=== PATIENT | male | born 1990 | race Caucasian/White ===

== ENCOUNTER 2017-01-03 14:15 | Inpatient (IN) | payer BC, OTHER ==
[~2017-01-03] VITALS: Ht 175.3 cm; Wt 94.3 kg
[2017-01-03] MEDS ORDERED: LOPERAMIDE HCL 2 MG CAPSULE PO PRN ×2 (22:45)
[2017-01-03] MEDS ORDERED: diphenhydrAMINE 50 MG CAPSULE PO PRN (22:45)
[2017-01-03] MEDS ORDERED: BUPRENORPHINE HCL 2 MG TAB.SUBL SL PRN (22:45)
[2017-01-03] MEDS ORDERED: LORAZEPAM 2 MG/1 ML VIAL IM PRN (22:45)
[2017-01-03] MEDS ORDERED: MIRALAX 17 GM POWD.PACK PO PRN (22:45)
[2017-01-03] MEDS ORDERED: IBUPROFEN 400 MG TABLET PO PRN (22:45)
[2017-01-03] MEDS ORDERED: LORAZEPAM 1 MG TABLET PO PRN ×2 (22:45)
[2017-01-03] MEDS ORDERED: MAGNESIUM HYDROXIDE 30 ML LIQUID UDC PO PRN (22:45)
[2017-01-03] MEDS ORDERED: THIAMINE HCL 200 MG/2 ML VIAL IM ONE (22:45)
[2017-01-03] MEDS ORDERED: MAG HYDROX/AL HYDROX/SIMETH 30 ML LIQUID UDC PO PRN (22:45)
[2017-01-03 23:00] VITALS: BP 127/72
--- NOTE | 2017-01-03 23:00 | NUR ---
ADMISSION NOTE: NEW ADMISSION IS A 26 YO MALE ON THE [facility] AT 22:30 ON 01/03/17 ACCOMPANIED BY MALE VALVE LINER RUBBER. SKIN CHECK COMPLETED REVEALS SKIN TO BE CLEAN, DRY, INTACT. UDS COLLECTED AND RESULTED POSITIVE FOR CANNABINOIDS WHICH IS NOT CONSISTENT WITH SUBSTANCE USE HISTORY PROVIDED BY PT. VS UPON ADMISSION: 127/72, 84, 98.4, 18, 96% SPO2 ON RA. COWS IS 12, CIWA IS 13: PT REPORTS ANXIETY, SENSITIVITY TO LIGHT, RESTLESSNESS, HEADACHE, NAUSEA. HEIGHT IS 59 AND WEIGHT BY STANDING SCALE IS 208 LBS. PT REPORTS NKDA/NKFA. PT ADMITTED UNDER THE CARE OF DR RAMÍREZ FOR ETOH DEPENDENCE AND WITHDRAWAL. PT REPORTS THE FOLLOWING SUBSTANCE USE: ETOH (VODKA): PT REPORTS DRINKING 1-2 PINTS VODKA DAILY FOR 6 MONTHS. PT REPORTS STARTING TO DRINK ETOH 11 YEARS AGO. LAST DRINK WAS ON THE MORNING PRIOR TO ADMISSION, 1 PINT VODKA. SEROQUEL: PT REPORTS TAKING PO OR SMOKING 500-700MG DAILY FOR 2 MONTHS. PT REPORTS STARTING TO TAKE SEROQUEL 6 MONTHS AGO. LAST USE WAS 400MG 4 HOURS PRIOR TO ADMISSION. HYDROCODONE: PT REPORTS TAKING 20-50MG DAILY FOR 6 YEARS. PT REPORTS LAST USING 50MG ON 01/01/17. PT REPORTS SMOKING 10-20 CIGARETTES DAILY FOR 4 YEARS. WRITTEN SMOKING CESSATION EDUCATION PROVIDED. PT VERBALIZES UNDERSTANDING. PT DENIES TREATMENT/DETOX HX. PT DENIES ANY HOSPITALIZATIONS, SURGERIES, PMHX. PT REPORTS PCP IS DR PASCAL IN [place], [place]. PT REPORTS DX OF ANXIETY, INSOMNIA, MAJOR DEPRESSION. PT DENIES SEIZURE HX. PT IS AMBULATORY WITH STEADY GAIT. PT IS COOPERATIVE, FRIENDLY, ABLE TO ANSWER QUESTIONS FOR ADMISSION. PT IS NOTED TO BE UNABLE TO SIT STILL WITH CONSTANT FIDGETING. PERRLA AT 3MM. LUNGS ARE CTA THROUGHOUT, RESPIRATIONS ARE EVEN AND UNLABORED AT 18. PT DENIES COUGH/SOB. HEART SOUNDS REGULAR. PT DENIES ANY EXTREMITY WEAKNESS. BOWEL SOUNDS ACTIVE IN ALL QUADRANTS; LAST BM ON 01/02/17. ABDOMEN IS SOFT, NON-DISTENDED, NON-TENDER. PT REPORTS SUICIDE ATTEMPT 3 WEEKS PRIOR TO ADMISSION. PT REPORTS GOING TO BRIDGE AND DRINKING VODKA, WITH THOUGHTS OF JUMPING OFF BRIDGE. PT REPORTS THAT SOMEONE STOPPED TO TALK TO HIM AND ENCOURAGED HIM TO LEAVE BRIDGE. PT STATES, "THE GROUND ACTUALLY LOOKED SOFT". PT VERBALIZED FEELINGS OF HOPELESSNESS MULTIPLE TIMES DURING ADMISSION ASSESSMENT. PT ALSO REPORTS EXPERIENCING SUICIDAL THOUGHTS A TYPICAL SYMPTOM OF WITHDRAWAL FROM ETOH AND SEROQUEL. DR RAMÍREZ ORDERED PT TO BE PLACED ON 1:1 FOR SAFETY.
--- NOTE | 2017-01-03 23:01 | NUR ---
PRN BENADRYL AND ATIVAN 2MG ONCE: PT REPORTS SEVERE INSOMNIA. ADMINISTERED PRN BENADRYL WITH ATIVAN 2MG PO ONCE PER MD ORDER.
[2017-01-03] MEDS ORDERED: LORAZEPAM 1 MG TABLET ONE (23:02)
[2017-01-03] MEDS ORDERED: diphenhydrAMINE 50 MG CAPSULE ONE (23:03)
[2017-01-03] MEDS ORDERED: QUET100T PO (23:04)
[2017-01-03 23:05] LABS: HEMATOCRIT 47.8 % (40.0-50.0); HEMOGLOBIN 16.2 g/dL (14.0-18.0); MEAN CORPUSCULAR HEMOGLOBIN 30.1 uug (27.0-31.0); MEAN CORPUSCULAR HGB CONC 34 g/dL (32.0-37.0); MEAN CORPUSCULAR VOLUME 88.9 fL (82.0-92.0); PLATELET COUNT (AUTO) 224 K/uL (150-450); RED BLOOD CELL COUNT(AUTO) 5.38 MIL/uL (4.70-6.10); RED CELL DISTRIBUTION WIDTH 12.9 % (11.5-14.5); WHITE BLOOD COUNT (AUTO) 11.3 K/uL (4.0-11.2)
[2017-01-03 23:26] LABS: ALANINE AMINOTRANSFERASE 67 U/L (16-63); ALBUMIN 4.2 g/dL (3.4-5.0); ALKALINE PHOSPHATASE 79 U/L (50-136); AMYLASE 29 U/L (25-115); ASPARTATE AMINOTRANSFERASE 34 U/L (15-37); BILIRUBIN,TOTAL 0.5 mg/dL (0.2-1.0); CARBON DIOXIDE 25 mmol/L (21-32); CHLORIDE 103 mmol/L (98-107); CREATININE 1.1 mg/dL (0.6-1.3); GFR 82 mL/min (>60); GLUCOSE 133 mg/dL (74-106); LIPASE 94 U/L (73-393); MAGNESIUM 2.1 mg/dL (1.8-2.4); POTASSIUM 3.4 mmol/L (3.5-5.1); SODIUM SERUM 139 mmol/L (136-145); TOTAL PROTEIN, SERUM 7.9 g/dL (6.4-8.2); UREA NITROGEN, BLOOD 17 mg/dL (7-18)
[2017-01-03 23:29] LABS: ETHANOL < 3 MG/DL (0-0)
[2017-01-03] MEDS ORDERED: LORAZEPAM 1 MG TABLET PO ONE (23:30)
[2017-01-03 23:37] LABS: THYROID STIMULATING HORMONE 3.545 mIU/mL (0.358-3.740)
[2017-01-03 23:44] LABS: *AMPHETAMINE, URINE NEGATIVE (NEGATIVE); *BARBITURATE, URINE NEGATIVE (NEGATIVE); *CANNABINOID, URINE POSITIVE (NEGATIVE); *COCCAINE, URINE NEGATIVE (NEGATIVE); *OPIATE, URINE NEGATIVE (NEGATIVE); *PHENCYCLIDINE SCREEN,URINE NEGATIVE (NEGATIVE)
[2017-01-04] VITALS: BP 131/81
[2017-01-04 00:05] LABS: HIV-1 p24 ANTIGEN NON REACTIVE (NONREACTIVE); HIV-1/2 ANTIBODY NON REACTIVE (NONREACTIVE)
--- NOTE | 2017-01-04 01:15 | NUR ---
REASSESSMENT AND PRN ATIVAN: PT REPORTS THAT HE IS STILL ANXIOUS, AGITATED, NAUSEOUS, SENSITIVE TO LIGHT AND SOUND, HEADACHE. PRN BENADRYL NOT EFFECTIVE. CIWA IS 18. ADMINISTERED PRN ATIVAN 2MG ORDERED ACCORDING TO CIWA SCORE.
[2017-01-04 01:47] LABS: BAND % (MANUAL) 1 % (0-10); EOSINOPHILS % (MANUAL) 1 % (0-8); LYMPHOCYTES % (MANUAL) 30 % (20-40); MONOCYTES % (MANUAL) 3 % (2-10); NEUTROPHILS % (MANUAL) 65 % (42-75)
[2017-01-04 01:50] LABS: PLATELET ESTIMATE ADEQUATE
[2017-01-04] MEDS ORDERED: METHOCARBAMOL 750 MG TABLET ONE (02:49)
[2017-01-04] MEDS ORDERED: HYDROXYZINE PAMOATE 25 MG CAPSULE ONE (02:49)
[2017-01-04] MEDS: METHOCARBAMOL 750 MG TABLET PO PRN (02:50)
[2017-01-04] MEDS ORDERED: PROMETHAZINE HCL 25 MG/1 ML VIAL ONE (02:50)
[2017-01-04] MEDS: CLONIDINE HCL 0.1 MG TABLET PO PRN ×2 (02:50→12:20)
[2017-01-04] MEDS: HYDROXYZINE PAMOATE 25 MG CAPSULE PO PRN (02:50)
[2017-01-04] MEDS ORDERED: CLONIDINE HCL 0.1 MG TABLET ONE (02:50)
--- NOTE | 2017-01-04 02:50 | NUR ---
REASSESSMENT AND PRN'S PT REPORTS THAT HE IS STILL ANXIOUS, AGITATED, WITH NAUSEA, RESTLESS LEGS, MYALGIA. CIWA IS NOW 17 AND COWS IS 12. ADMINISTERED PRN CLONIDINE, PRN PHENERGAN IM, PRN VISTARIL, AND PRN ROBAXIN ORDERED. WILL CONTINUE TO MONITOR.
[2017-01-04] MEDS: PROMETHAZINE HCL 25 MG/1 ML VIAL IM PRN ×2 (02:51→10:30)
--- NOTE | 2017-01-04 03:50 | NUR ---
REASSESSMENT: PT IS IN BED WITH EYES CLOSED. RESPIRATIONS ARE EVEN AND UNLABORED. NO S/S OF ACUTE DISTRESS NOTED. PRN'S CLONIDINE, PHENERGAN, VISTARIL, AND ROBAXIN EFFECTIVE. PT CONTINUES ON 1:1 FOR SAFETY. WILL CONTINUE TO MONITOR.
--- NOTE | 2017-01-04 04:00 | NUR ---
VITALS/COWS/CIWA REFUSED: PT REFUSES VITALS AND COWS/CIWA ASSESSMENTS FOR SLEEP. PT EDUCATED ON RISKS BENEFITS. ALL SAFETY PRECAUTIONS ARE IN PLACE. WILL CONTINUE TO MONITOR. Addendum: 01/04/17 at 0531 by MATTHEW HSU RN Amended: Links added.
[2017-01-04] MEDS ORDERED: QUET200T PO (06:20)
--- NOTE | 2017-01-04 07:04 | NUR ---
END OF SHIFT NOTE: PT IS A 26 YO MALE ADMITTED TO [facility] ON 01/03/17 FOR MEDICALLY SUPERVISED WITHDRAWAL FROM ETOH. PT REPORTS DRINKING 473-1419 ML VODKA DAILY FOR 6 MONTHS; PT ALSO REPORTS SMOKING 500-700MG SEROQUEL DAILY. PT WAS TAKING 20-50MG HYDROCODONE DAILY, BUT LAST USED ONE WEEK PRIOR TO ADMISSION. PT IS TO START A 5-DAY ATIVAN TAPER TODAY. PT SKIN IS INTACT. PT IS ON A REGULAR DIET. PT IS A FULL CODE. PT REPORTS NKDA/NKFA. VTE SCORE IS 0. PT IS ON 1:1 FOR SUICIDE ATTEMPT THREE WEEKS PRIOR, POSSIBLE CURRENT SI. PT REPORTS A PSYCH HX OF ANXIETY, MAJOR DEPRESSION, AND INSOMNIA. PT DENIES MEDICAL HX. PT REMAINED A&OX4 DURING SHIFT WITH VSS. LAST COWS=12, CIWA=17 AT 02:30. PT WAS EXTREMELY ANXIOUS AND UNABLE TO SIT STILL DURING ADMISSION AND FOR MOST OF THE NIGHT. PT RECEIVED 2MG ATIVAN ONCE AND PRN BENADRYL UPON ADMISSION, WHICH WAS NOT EFFECTIVE, AND AN ADDITIONAL 2MG ATIVAN PRN WAS ADMINISTERED. PT WAS STILL ANXIOUS WITH COWS OF 12, CIWA OF 18, AND PRN CLONIDINE AND PRN VISTARIL WERE GIVEN FOR ANXIETY. PRN PHENERGAN WAS ALSO GIVEN FOR NAUSEA, AND PRN ROBAXIN FOR MYALGIA. PT WAS FINALLY ABLE TO SLEEP AT 04:00 AND SLEPT 2 HOURS THIS SHIFT. TOTAL FLUID INTAKE THIS SHIFT: 1243 ML; TOTAL OUTPUT: URINE X 3, BM X 1 IS CURRENTLY IN BED AND CONTINUES ON 1:1 FOR SAFETY. BED IS IN LOW POSITION AND LOCKED, SIDE RAILS UP X2, CALL LIGHT WITHIN REACH. ALL NEEDS ATTENDED AND MET. PT ENDORSED TO DAY SHIFT NURSE.
--- NOTE | 2017-01-04 07:05 | NUR ---
Start of Shift Notes: Received patient in his room. Alert and oriented x 4. Verbally responsive. Able to make his needs known. Respirations even and unlabored. No SOB noted. Skin warm and dry to touch. Abdomen soft and non-distended. BS (+) in all 4 quadrants. No complains of N/V/D or constipation noted. Bladder non-distended. Voids independently with no complains of dysuria. Ambulatory ad destin with steady gait. Patient is a 26 year old male admitted for ETOH and Seroquel dependence who was placed on a 5-day Ativan taper as ordered and on PRN Subutex. NKA. FULL CODE. Regular diet. On fall and seizure precautions. Educated patient on his current plan of care for the day and his medication regimen. Encouraged oral fluid intake and encouraged group participation to learn new skills to prevent relapse.
--- NOTE | 2017-01-04 07:06 | NUR ---
Additional start of shift notes: Patient is on a 1:1 at this time due to episode of suicidal attempt/ideation 3 weeks ago prior to admission. No S/I or H/I noted at this time.
[2017-01-04 08:00] VITALS: BP 131/71
[2017-01-04] MEDS ORDERED: PNEUMOCOCCAL 23-VAL P-SAC VAC 0.5 ML VIAL IM ONE (09:00)
[2017-01-04] MEDS ORDERED: TUBERCULIN,PURIF.PROT.DERIV. 5 TU/0.1 ML TEST ID ONE (09:00)
[2017-01-04] MEDS ORDERED: INFLUENZA VACCINE 0.5 ML DISP.SYRIN IM ONE (09:00)
[2017-01-04] MEDS: GABAPENTIN 300 MG CAPSULE PO SCH ×3 (09:24→20:57)
[2017-01-04] MEDS: THIAMINE HCL 100 MG TABLET PO SCH (09:24)
[2017-01-04] MEDS: MULTIVITAMINS,THERAPEUTIC TABLET PO SCH (09:24)
[2017-01-04] MEDS: FOLIC ACID 1 MG TABLET PO SCH (09:25)
[2017-01-04] MEDS: LORAZEPAM 1 MG TABLET PO SCH ×4 (09:25→20:57)
--- NOTE | 2017-01-04 10:30 | NUR ---
Phenergan 25 mg IM given: Patient noted with x 3 episodes of vomitting food particles. Unable to tolerate PO fluids at this time. Offered PRN Zofran but patient requested for Phenergan IM. Medicated patient with Phenergan 25 mg IM as ordered to patient's right buttock. Will monitor for effectiveness.
[2017-01-04] MEDS ORDERED: LORAZEPAM 1 MG TABLET PO ONE (11:00)
--- NOTE | 2017-01-04 11:21 | NUR ---
Re-assessment: Patient noted with continued episodes of vomiting noted. X 3 episodes of vomiting after Phenergan administration. CIWA 21. MD Mike aware. New orders received for patient to be started on IVF and additional x 1 dose of Ativan. Orders noted and carried out. Patient was informed. Education provided.
--- NOTE | 2017-01-04 11:30 | NUR ---
Psych MD Communication: Patient noted with visual hallucinations, seeing "frightening" things on the correa and the vents. Patient stated that he sees the correa float and "see-through." Dr. Blake made aware. VS BP 130/85, Pulse 100. New orders obtained from Dr. Blake. Orders noted and carried out. Patient was informed. Education provided.
--- NOTE | 2017-01-04 11:45 | NUR ---
IV line inserted: IV access line inserted to patient's left forearm. Utilized 22 gauge to patient's left forearm. Attempted x 1 with good blood return via aseptic technique. Tourniquet released and patient tolerated the procedure well. Kept comfortable at all times. 1:1 still ongoing at this time.
[2017-01-04] MEDS: OLANZAPINE ZYDIS 5 MG TAB.RAPDIS PO PRN (11:54)
--- NOTE | 2017-01-04 11:54 | NUR ---
PRN Zyprexa given: PRN Zyprexa Zydis given due to episodes of visual hallucinations, disorientation to date. CIWA 21. Will monitor for effectiveness.
[2017-01-04 12:00] VITALS: BP 137/87
[2017-01-04] MEDS: PANTOPRAZOLE SODIUM 40 MG VIAL IV SCH (12:07)
[2017-01-04] MEDS: POTASSIUM CHLORIDE 20 MEQ in IV D5 1/2 NS 1000 ML 1,000 ML IV PRN ×2 (12:07→22:15)
[2017-01-04] MEDS ORDERED: TRAZODONE 50 MG TABLET PO PRN (12:15)
--- NOTE | 2017-01-04 12:20 | NUR ---
Clonidine 0.1mg PO given: Patient noted with anxiety and agitation. Also noted to be diaphoretic. Medicated patient with Clonidine 0.1 mg PO as ordered. Will monitor for effectiveness.
--- NOTE | 2017-01-04 12:21 | NUR ---
MD Communication: Patient's CIWA 19. Notified Dr. Mike. Routine Ativan 2 mg PO given at this time.
--- NOTE | 2017-01-04 12:54 | NUR ---
Re-assessment: LOVE Valdez re-assessment done. Patient continues to see things on the wall and on the vents. According to 1:1 BHT assigned to the patient, while patient was downstairs on his smoke break, patient verbalized that he was "seeing the tent cave in and the legs on the table were moving." Redirection and reorientation was provided. Will continue to monitor the patient.
--- NOTE | 2017-01-04 13:20 | NUR ---
Re-assessment: Per patient, PRN Clonidine was mildly effective in reducing anxiety, agitation and sweating.
--- NOTE | 2017-01-04 15:46 | NUR ---
Gabapentin at 1500 not administered: Patient noted to be in bed. Eyes closed. Chest movement noted. Respirations even and unlabored. RR 16. On 1:1. Bilateral siderails up and padded. Gabapentin at [address] Mike made aware. Per , ok to hold Gabapentin at 1500.
[2017-01-04 16:00] VITALS: BP 126/83
--- NOTE | 2017-01-04 18:40 | NUR ---
Mag Citrate given: Patient requested for mag citrate to be given at this time due to no relief noted from Miralax. Mag Citrate was given as ordered. Will monitor for effectiveness. Addendum: 01/04/17 at 1939 by KG PERRY LVN Charted in error
--- NOTE | 2017-01-04 19:38 | NUR ---
End of Shift Notes: Patient is a 26 year old male admitted for ETOH dependence who was placed on a 5-day Ativan taper as ordered. No adverse reactions noted. Has past medical hx of depression, insomnia and anxiety, and suicide attempts x 2 3 weeks prior to admission. On 1:1 at this time due to SA attempts within the past 30 days and visual hallucinations. Prior to admission, patient was using 473 to 1419ml of Vodka. And 500 to 700 mg of Seroquel. FULL CODE. Regular diet. On fall and seizure precautions. NKA. VS monitored closely q 4 hours. No significant abnormalities noted in the patients VS noted. Initial CIWA at 21 presented with nausea, vomiting, visual hallucinations, anxiety, agitation, and sweating. Last CIWA _. Per patient, Ativan has been helping him with his withdrawal symptoms. Patient was medicated with Phenergan at 1030 for vomiting with no help, Ativan at 1121 due to high CIWA and Zyprexa at 1154 due to hallucinations with help. Clonidine 0.1mg PO was given at 1220 due to anxiety, agitation and chills with help after 1 hour. Patient was started on IVF of D5 NS + 20 meQ of K at 120cc/hr. IV site of 22 g to left forearm intact and patent. No s/s of infiltration noted. Flushed adequately per unit protocol. Flu and PNA vaccine was given today. No s/s of respiratory distress noted. No cough. No congestion. No SOB noted. No runny nose. No S/I or H/I noted. Siderails up and padded when in bed. Safety measures in place. Unable to participate In group due to his withdrawal symptoms but appears to be motivated to sobriety. All needs met and attended. Will continue to monitor closely.
--- NOTE | 2017-01-04 19:50 | NUR ---
START OF SHIFT Received report from day shift nurse. Pt is lying in bed resting with 1:[address] for safety. He is easily arousable to verbal stimulation, A&O 4, and ambulatory with assistance due to weakness. He uses a wheelchair as needed. Pt has NKA, is full code status, and on a regular diet. He has a 22 gauge IV on the left forearm and is receiving IV fluids. He denies visual or auditory hallucinations. He has a PMH of major depression, anxiety, insomnia, and suicide attempts x2. Last suicide attempt was 3 weeks ago. On admission he reported drinking vodka 473-1419mL for the past 6 months, Seroquel oral inhalation 500-700mg for 2 months, hydrocodone 20-50mg intermittently for 6 years. He has a h/o tramodol and cocaine abuse. He started a 5 day Ativan taper today. Pt denies SI/HI. He reports mild nausea, and is noted with mild tremors and moist skin. Ativan taper due tonight. Fall and seizure precautions in place. Bed is down with call light in reach.
[2017-01-04 20:00] VITALS: BP 98/61
[2017-01-05] VITALS (7 sets, daily range): BP systolic 100–147; BP diastolic 52–95
[2017-01-05] MEDS: HYDROXYZINE PAMOATE 25 MG CAPSULE PO PRN (04:53)
--- NOTE | 2017-01-05 04:56 | NUR ---
PRN Vistaril Pt woke up and reports anxiety. He appears restless and is shaking a pack of cigarettes in his hand. He is A&O. Encouraged relaxation. PRN Vistaril administered.
[2017-01-05 06:59] LABS: HEMATOCRIT 46.7 % (40.0-50.0); HEMOGLOBIN 15.7 g/dL (14.0-18.0); MEAN CORPUSCULAR HEMOGLOBIN 29.9 uug (27.0-31.0); MEAN CORPUSCULAR HGB CONC 34 g/dL (32.0-37.0); MEAN CORPUSCULAR VOLUME 88.8 fL (82.0-92.0); PLATELET COUNT (AUTO) 180 K/uL (150-450); RED BLOOD CELL COUNT(AUTO) 5.26 MIL/uL (4.70-6.10); RED CELL DISTRIBUTION WIDTH 12.6 % (11.5-14.5); WHITE BLOOD COUNT (AUTO) 9.9 K/uL (4.0-11.2)
--- NOTE | 2017-01-05 07:10 | NUR ---
END OF SHIFT Report provided to day shift nurse. Pt is lying in bed resting with 1:[address] for safety. He is a 26 yo male admitted to [facility] on 01/03 for ETOH dependence. He is A&O 4 and ambulatory with assistance. He uses a wheelchair as needed due to weakness. Pt has NKA, is full code status, and on a regular diet. He has a 22 gauge IV on the left forearm and is receiving IV fluids. Pt has a PMH of major depression, anxiety, insomnia, and suicide attempts x2. Last suicide attempt was 3 weeks ago. Upon admission he admitted to drinking vodka 473-1419mL for the past 6 months, Seroquel oral inhalation 500-700mg for 2 months, hydrocodone 20-50mg intermittently for 6 years. He has a h/o tramadol and cocaine abuse. He started a 5 day Ativan taper yesterday. Pt denies SI/HI. He did not experience any visual or auditory hallucinations throughout the shift. He has been cooperative with treatment. PRN Vistaril administered. Last CIWA was 6. He drank 1710mL and slept for 7 hours. Fall and seizure precautions in place. Bed is down with call light in reach.
--- NOTE | 2017-01-05 07:11 | NUR ---
Start of Shift Notes: Received patient in his room. Alert and oriented to self and situation. Disoriented to time and place. Reorientation provided. Respirations even and unlabored. No SOB noted. Skin warm and dry to touch. IV access to left forearm intact. No s/s of infiltration noted. IVF of D5 1/2NS with 20 mEq at 120cc/hr infusing well. Abdomen soft and non-distended with (+) BS in all 4 quadrants. Noted with x 1 episode of vomiting and nausea. Ambulatory with unsteady gait. Requires use of w/c for locomotion off unit. Able to ambulate with slow small steps from room to the bathroom. Voids independently. On 1:1 at this time due to visual hallucinations and unsteady gait, as well as history of SA in the past. Patient is a 26 year old male admitted for ETOH dependence who was placed on a 5-day Ativan taper as ordered. No adverse reactions noted. Patient is tolerating taper well. Has past medical hx of major depression, anxiety, insomnia, and suicide attempts 3 weeks prior to admission. NKA. FULL CODE. Regular diet. On fall and seizure precautions. Patient noted with active visual hallucinations at time of this assessment. Per patient, he sees patterns on the wall and floating face on the vents of the room. Reorientation provided. No S/I or H/I noted at this time. Educated patient on his current plan of care for the day and his medication regimen. Encouraged group participation to learn new skills to prevent relapse. All needs met and attended. Will continue to monitor closely.
[2017-01-05 07:22] LABS: ALBUMIN 3.7 g/dL (3.4-5.0); BILIRUBIN,DIRECT 0.1 mg/dL (0.0-0.2); BILIRUBIN,TOTAL 0.6 mg/dL (0.2-1.0); CALCIUM 8.8 mg/dL (8.5-10.1); MAGNESIUM 1.8 mg/dL (1.8-2.4); POTASSIUM 4.4 mmol/L (3.5-5.1); TOTAL PROTEIN, SERUM 7.1 g/dL (6.4-8.2)
[2017-01-05] MEDS: POTASSIUM CHLORIDE 20 MEQ in IV D5 1/2 NS 1000 ML 1,000 ML IV PRN (07:44)
--- NOTE | 2017-01-05 07:44 | NUR ---
IV bag replaced: Patient's IV bag replaced at this time by RN. Flushed adequately per unit protocol. No s.s of infiltration noted. Patient tolerated well.
[2017-01-05] MEDS: PROMETHAZINE HCL 25 MG/1 ML VIAL IM PRN (08:30)
--- NOTE | 2017-01-05 08:30 | NUR ---
Phenergan 25 mg IM given: Patient unable to tolerate PO fluids and food. Vomitted x 1. Nausea noted. Medicated patient with Phenergan 25 mg IM to patient's left buttocks. Patient tolerated well. Will monitor for effectiveness.
[2017-01-05] MEDS: THIAMINE HCL 100 MG TABLET PO SCH (08:32)
[2017-01-05] MEDS: GABAPENTIN 300 MG CAPSULE PO SCH ×3 (08:32→20:46)
[2017-01-05] MEDS: LORAZEPAM 1 MG TABLET PO SCH ×3 (08:32→20:46)
[2017-01-05] MEDS: MULTIVITAMINS,THERAPEUTIC TABLET PO SCH (08:32)
[2017-01-05] MEDS: FOLIC ACID 1 MG TABLET PO SCH (08:32)
[2017-01-05] MEDS: ESCITALOPRAM OXALATE 10 MG TABLET PO SCH (08:32)
[2017-01-05] MEDS: OLANZAPINE ZYDIS 5 MG TAB.RAPDIS PO PRN (08:33)
--- NOTE | 2017-01-05 08:33 | NUR ---
Zyprexa Zydis 5 mg PO given: Patient noted with visual hallucinations. Verbalized seeing a person on the vents and seeing patterns on the correa. CIWA 20. Reorientation provided. Medicated patient with Zyprexa Zydis 5 mg PO as ordered. Will monitor for effectiveness.
[2017-01-05] MEDS: PANTOPRAZOLE SODIUM 40 MG VIAL IV SCH (08:49)
[2017-01-05 09:07] LABS: HCV AB 0.1 s/co ratio (0.0-0.9); HEPATITIS B CORE AB, IgM Negative (Negative); HEPATITIS B SURFACE AG Negative (Negative)
--- NOTE | 2017-01-05 09:30 | NUR ---
Re-assessment: Patient noted with no complains of nausea noted. No further episodes of vomiting noted. PRN Phenergan was effective.
--- NOTE | 2017-01-05 09:33 | NUR ---
Re-assessment: Patient verbalizes mild visual hallucinations at this time. Will continue to monitor.
--- NOTE | 2017-01-05 10:24 | NUR ---
Procalcitonin level: Notified MD Mike of patient's Procalcitonin level of 0.23H
[2017-01-05 11:25] LABS: BASOPHILS % (AUTO) 0.2 % (0.0-2.0); EOSINOPHILS % (AUTO) 1.1 % (0.0-7.0); LYMPHOCYTES % (AUTO) 9.7 % (20.5-51.5); MONOCYTES % (AUTO) 7.9 % (0.0-11.0); NEUTROPHILS % (AUTO) 81.1 % (38.5-71.5)
--- NOTE | 2017-01-05 14:00 | NUR ---
Motrin 400 mg PO given: Patient noted with complain of 5/10 headache. Unable to be relieved with non-pharmacological intervention. Medicated patient with Motrin 400 mg PO as ordered. Will monitor for effectiveness.
--- NOTE | 2017-01-05 15:00 | NUR ---
Re-assessment: Per patient, PRN Motrin was effective in relieving his headache.
--- NOTE | 2017-01-05 18:27 | NUR ---
MD Communication: Patient tolerated lunch and dinner well. Ate 75% of lunch and dinner. No nausea. No further episodes of vomiting noted. Oral fluids tolerated well. Completed IV fluids. Notified Dr. Mike. Per , ok to discontinue IV at this time. Will continue to monitor.
--- NOTE | 2017-01-05 18:31 | NUR ---
IV D/C: IV access site discontinued. Patient tolerated well. No bleeding noted. Pressure applied to puncture area for 2 minutes and covered with DD.
--- NOTE | 2017-01-05 19:04 | NUR ---
End of Shift Notes: Patient is a 26 year old male admitted for ETOH dependence who was placed on a 5-day Ativan taper as ordered. No adverse reactions noted. Has past medical hx of depression, insomnia and anxiety, and suicide attempts x 2 3 weeks prior to admission. On 1:1 at this time due to SA attempts within the past 30 days and visual hallucinations. Prior to admission, patient was using 473 to 1419ml of Vodka. And 500 to 700 mg of Seroquel. FULL CODE. Regular diet. On fall and seizure precautions. NKA. VS monitored closely q 4 hours. No significant abnormalities noted in the patients VS noted. Labs reviewed. Procalcitonin level 0.23H. MD Mike made aware. Patients withdrawal symptoms were closely monitored. Patient presented with visual hallucinations, anxiety, agitation, nausea, sweating , and tremors. Initial CIWA 20, Last CIWA 5. Medicated patient with Phenergan 25mg IM and Zyprexa Zydis 5 mg for hallucination and N/V with help after 1 hour. Motrin 400 mg PO was given at 1400 for headache with help. IV dcd at 1830. Tolerated well. No vomiting noted. Tolerating oral intake well. Denies S/I or H/I at during the shift. Unable to participate in group. All needs met and attended. Will continue to monitor closely.
--- NOTE | 2017-01-05 20:05 | NUR ---
START OF SHIFT Received report from day shift nurse. Pt attended a group meeting and returned to his room after. He has a 1:[address] for safety. He is A&O 4, and ambulatory with minimal assistance due to weakness. He uses a wheelchair as needed. Pt has NKA, is full code status, and on a regular diet. He denies visual or auditory hallucinations. He has a PMH of major depression, anxiety, insomnia, and suicide attempts x2. Last suicide attempt was 3 weeks ago. On admission he reported drinking vodka 473-1419mL for the past 6 months, Seroquel oral inhalation 500-700mg for 2 months, hydrocodone 20-50mg intermittently for 6 years. He has a h/o tramodol and cocaine abuse. He started a 5 day Ativan taper on 01/04. When asked if he has thoughts of harming himself pt states "Im at 1/10 right now but I have a lot of distractions to keep me busy". 1:1 in close proximity for safety. Provided reassurance. Advised pt to report to staff if he has increasing SI. He reports mild nausea and is noted to have moist skin and flushing. Ativan taper due tonight. Pt has been cooperative with treatment. Fall and seizure precautions in place. Bed is down with call light in reach.
[2017-01-05] MEDS: ONDANSETRON ODT 4 MG TAB.RAPDIS SL PRN (20:47)
--- NOTE | 2017-01-05 20:50 | NUR ---
PRN Zofran Pt c/o nausea with one episode of vomiting. PRN Zofran administered.
--- NOTE | 2017-01-05 21:50 | NUR ---
PRN Zofran reassessment Pt reports relief of nausea and no further episodes of vomiting.
[2017-01-06] VITALS: BP 91/52
[2017-01-06 04:00] VITALS: BP 102/51
--- NOTE | 2017-01-06 07:25 | NUR ---
END OF SHIFT Report provided to day shift nurse. Pt is lying in bed resting with a 1:[address] for safety. He is A&O 4, and ambulatory with stand by assist due to weakness. Pt has NKA, is full code status, and on a regular diet. He denies visual or auditory hallucinations. He has a PMH of major depression, anxiety, insomnia, and suicide attempts x2. Last suicide attempt was 3 weeks ago. On admission he reported drinking vodka 473-1419mL for the past 6 months, Seroquel oral inhalation 500-700mg for 2 months, hydrocodone 20-50mg intermittently for 6 years. He has a h/o tramadol and cocaine abuse. He started a 5 day Ativan taper on 01/04. Pt reported mild thoughts of suicide but he denies having a plan. PRN Zofran administered and effective. Last CIWA was 3. He drank 1004mL and slept 6 hours. Fall and seizure precautions in place. Bed is down with call light in reach.
--- NOTE | 2017-01-06 07:27 | NUR ---
Start of Shift Notes: Received patient in his room. Alert and oriented to self and situation. Disoriented to time and place. Reorientation provided. Respirations even and unlabored. No SOB noted. Skin warm and dry to touch. IV access to left forearm intact. No s/s of infiltration noted. . Abdomen soft and non-distended with (+) BS in all 4 quadrants. Ambulatory with unsteady gait. Requires use of w/c for locomotion off unit. Able to ambulate with slow small steps from room to the bathroom. Voids independently. On 1:1 at this time due to visual hallucinations and unsteady gait, as well as history of SA in the past. Patient is a 26 year old male admitted for ETOH dependence who was placed on a 5-day Ativan taper as ordered. No adverse reactions noted. Patient is tolerating taper well. Has past medical hx of major depression, anxiety, insomnia, and suicide attempts 3 weeks prior to admission. NKA. FULL CODE. Regular diet. On fall and seizure precautions. Patient noted with active visual hallucinations at time of this assessment. . No S/I or H/I noted at this time. Educated patient on his current plan of care for the day and his medication regimen. Encouraged group participation to learn new skills to prevent relapse. All needs met and attended. Will continue to monitor closely.
[2017-01-06 08:00] VITALS: BP 119/69
[2017-01-06] MEDS: PANTOPRAZOLE SODIUM 40 MG TABLET.DR PO SCH (08:08)
--- NOTE | 2017-01-06 09:00 | NUR ---
Suicide Risk Assessment: Patient denies any suicidal/homicidal plans or ideation at this time. Directly expresses emotions/feelings verbally. Appears depressed. Redirected and reassurance provided. Encouraged social interaction with his peers. Has dx of substance abuse and depression. On Lexapro as ordered. Continue to monitor closely. Kept on 1:1 at this time. Addendum: 01/06/17 at 0925 by KG PERRY LVN Amended: Links added.
[2017-01-06] MEDS: FOLIC ACID 1 MG TABLET PO SCH (09:18)
[2017-01-06] MEDS: THIAMINE HCL 100 MG TABLET PO SCH (09:18)
[2017-01-06] MEDS: MULTIVITAMINS,THERAPEUTIC TABLET PO SCH (09:18)
[2017-01-06] MEDS: ESCITALOPRAM OXALATE 10 MG TABLET PO SCH (09:18)
[2017-01-06] MEDS: LORAZEPAM 1 MG TABLET PO SCH ×4 (09:18→20:15)
[2017-01-06] MEDS: GABAPENTIN 300 MG CAPSULE PO SCH ×3 (09:18→20:15)
[2017-01-06] MEDS: ONDANSETRON ODT 4 MG TAB.RAPDIS SL PRN (11:26)
--- NOTE | 2017-01-06 11:26 | NUR ---
Zofran 4 mg ODT given: Patient noted with complain of nausea. No vomiting noted. PRN Zofran was given at this time. Will monitor for effectiveness.
[2017-01-06 12:00] VITALS: BP 124/75
[2017-01-06] MEDS: DICYCLOMINE HCL 20 MG TABLET PO PRN ×2 (14:12→21:37)
[2017-01-06] MEDS: HYDROXYZINE PAMOATE 25 MG CAPSULE PO PRN ×2 (14:13→21:37)
[2017-01-06] MEDS: METHOCARBAMOL 750 MG TABLET PO PRN (14:13)
[2017-01-06] MEDS: CLONIDINE HCL 0.1 MG TABLET PO PRN (14:13)
--- NOTE | 2017-01-06 14:13 | NUR ---
PRN Clonidine, Robaxin, Vistaril, Bentyl PO given: Patient noted with agitation, increased anxiety, complains of muscle aches and pains, and stomach cramps. Medicated patient with PRN Clonidine, Robaxin, Vistaril and Bentyl as ordered. Will monitor for effectiveness.
--- NOTE | 2017-01-06 14:13 | NUR ---
Imodium 4 mg PO given: Noted patient with x 2 episodes of loose watery stools. Medicated patient with Imodium 4 mg PO as ordered. Oral fluid intake encouraged. Will monitor for effectiveness.
--- NOTE | 2017-01-06 15:13 | NUR ---
Re-assessment: Per patient, PRN Imodium, Clonidine, Robaxin, Vistaril and Bentyl were effective in relieving patient's diarrhea, muscle aches, anxiety and stomach cramps. Will continue to monitor closely.
[2017-01-06 16:00] VITALS: BP 107/48
--- NOTE | 2017-01-06 18:41 | NUR ---
End of Shift Notes: Patient is a 26 year old male admitted for ETOH dependence who was placed on a 5-day Ativan taper as ordered. No adverse reactions noted. Has past medical hx of depression, insomnia and anxiety, and suicide attempts x 2 3 weeks prior to admission. On 1:1 at this time due to SA attempts within the past 30 days and visual hallucinations. Prior to admission, patient was using 473 to 1419ml of Vodka. And 500 to 700 mg of Seroquel. FULL CODE. Regular diet. On fall and seizure precautions. NKA. VS monitored closely q 4 hours. No significant abnormalities noted in the patients VS noted. Labs reviewed. Patients withdrawal symptoms were closely monitored. Patient presented with anxiety, agitation, nausea, sweating , muscle aches, diarrhea, and stomach cramps. No episodes of AV hallucinations noted. Initial CIWA 20, Last CIWA 5. Medicated patient with Zofran 4 mg ODT at 1126 and Clonidine, Imodium, Robaxin, Vistaril and Bentyl as ordered at 1413 due to complain of anxiety, agitation, sweats, stomach cramps and diarrhea with effect after 1 hour. Tolerating oral intake well. Denies S/I or H/I at during the shift. Able to participate in some group and activities. All needs met and attended. Will continue to monitor closely.
--- NOTE | 2017-01-06 19:46 | NUR ---
START OF SHIFT NOTE Pt is a 26 y/o male admitted for ETOH (Vodka), Seroquel, and Hydrocodone dependence and use. Pt has NKA but reported a PMH of major depression, anxiety, insomnia, and suicide attempts x 2 (latest 3 weeks ago). Per day shift nurse pt was placed on a 5 day Ativan taper ( day 3 ) and is tolerating medication well, with no s/e or a/r reported. Pt continues on 1:1 supervision for safety precautions r/t SI. Pt received Clonidine 0.1 mg PO PRN, Robaxin 750 mg PO PRN, Vistaril 50 mg PO PRN, Imodium PO PRN, and Bentyl 20 mg PO PRN during the day shift. Last CIWA: 4 (1600). At this time pt is calm. cooperative and compliant with plan of care. Pt denies any pain/discomfort at this time. Pt also denies any visual disturbances, auditory disturbances, and suicidal ideations at this time. Pt is encouraged to notify staff of any changes in condition or of any concerns. Pt verbalized an understanding. All safety measures in place; side rails up x 2, bed locked and in low position, and call light within reach. Will continue to monitor.
[2017-01-06 20:00] VITALS: BP 137/76
--- NOTE | 2017-01-06 21:37 | NUR ---
BENTYL AND VISTARIL PRN ADMINISTRATION Pt reported having some anxiety and stomach cramps. Bentyl 20 mg PO PRN and Vistaril 50 mg PO PRN was given. Pt was encouraged to notify staff of any changes in condition or of any concerns. Pt verbalized an understanding. All safety measures in place. Will monitor for effectiveness.
--- NOTE | 2017-01-06 22:30 | NUR ---
KRISTEL PRN REASSESSMENT Pt stated " My stomach feels a little better and I'm a little bit more calm. Playing video games helped too because it took my mind off everything." PRNS effective. Pt was encouraged to notify staff of any changes in condition or of any concerns. Pt verbalized an understanding. All safety measures in place. Will continue to monitor.
--- NOTE | 2017-01-06 23:14 | NUR ---
TRAZODONE PRN ADMINISTRATION Pt stated " Can I have something to help me sleep?" Trazodone 50 mg PO PRN was given. Pt was encouraged to notify staff of any changes in condition or of any concerns. Pt verbalized an understanding. All safety measures in place. Will monitor for effectiveness.
--- NOTE | 2017-01-07 | NUR ---
CIWA AND VITALS REFUSED Pt refused to be assessed and have vitals taken at this time. Pt was encouraged x 3 with risks and benefits explained, but the pt still refused. All safety measures in place. Will continue to monitor. Addendum: 01/07/17 at 0107 by MARIO ALBERTO GARCIA LVN Amended: Links added.
--- NOTE | 2017-01-07 00:15 | NUR ---
TRAZODONE PRN REASSESSMENT Pt is asleep in bed with no signs of discomfort/distress noted. Pt's breathing is even and unlabored. Respirations are 14 breaths per minute. PRN effective. All safety measures in place. Will continue to monitor.
[2017-01-07 04:00] VITALS: BP 106/65
[2017-01-07] MEDS: HYDROXYZINE PAMOATE 25 MG CAPSULE PO PRN ×2 (04:00→12:56)
--- NOTE | 2017-01-07 04:00 | NUR ---
VISTARIL PRN ADMINISTRATION Pt stated " I can't stay asleep, and now I'm kind of having some anxiety. Can I have something to help me relax?" Vistaril 50 mg PO PRN was given. Pt was encouraged to notify staff of any changes in condition or of any concerns. Pt verbalized an understanding. All safety measures in place. Will monitor for effectiveness.
[2017-01-07] MEDS: PANTOPRAZOLE SODIUM 40 MG TABLET.DR PO SCH (07:00)
[2017-01-07 07:11] LABS: CALCIUM 8.8 mg/dL (8.5-10.1); CREATININE 1.1 mg/dL (0.6-1.3); MAGNESIUM 2.3 mg/dL (1.8-2.4); POTASSIUM 4.1 mmol/L (3.5-5.1)
--- NOTE | 2017-01-07 07:30 | NUR ---
END OF SHIFT NOTE Pt is a 26 y/o male admitted for ETOH (Vodka), Seroquel, and Hydrocodone dependence and use. Pt has NKA but reported a PMH of major depression, anxiety, insomnia, and suicide attempts x 2 (latest 3 weeks ago). Pt was placed on a 5 day Ativan taper ( day 3 ) and is tolerating medication well, with no s/e or a/r reported. Pt continues on 1:1 supervision for safety precautions r/t SI. Pt received Vistaril 50 mg PO PRN x 2, Trazodone 50 mg PO PRN, and Bentyl 20 mg PO PRN during the shift. Pt slept for a total of 5 hours. Last CIWA: 3 (0400). All safety measures in place; side rails up x 2, bed locked and in low position, and call light within reach. Endorsed to the oncoming nurse.
--- NOTE | 2017-01-07 07:59 | NUR ---
BEGINNING OF SHIFT Patient endorsement report received from night shift supervisor nurse, all pertinent information discussed. patient is a 26 year old male admitted on 01/03/2017 with admitting Dx: ETOH/opiate dependence. Patient with substance use history of: vodka 473-1419ml 6 months daily with history of drinking etoh for 11 years, Seroquel 500-700mg smoked daily for 2 months, with hx of smoking Seroquel for 6 months, hydrocodone 20-50mg intermittently for 6 years, hx of tramadol and cocaine abuse, and slept for 5 hours. Patient in bed with eyes closed respirations even and unlabored, received PRN: Bentyl, and Vistaril x2, per night shift supervisor medication effective, will educated regarding plan of care for the day and medication with regimen, safety measures in place. call light with in reach, will construes to monitor closely.
[2017-01-07 08:14] VITALS: BP 137/85
[2017-01-07] MEDS ORDERED: GABAPENTIN 300 MG CAPSULE PO SCH ×2 (09:00→21:00)
[2017-01-07] MEDS: MULTIVITAMINS,THERAPEUTIC TABLET PO SCH (09:05)
[2017-01-07] MEDS: FOLIC ACID 1 MG TABLET PO SCH (09:05)
[2017-01-07] MEDS: THIAMINE HCL 100 MG TABLET PO SCH (09:05)
[2017-01-07] MEDS: LORAZEPAM 1 MG TABLET PO SCH ×3 (09:05→21:09)
[2017-01-07] MEDS: ESCITALOPRAM OXALATE 10 MG TABLET PO SCH (09:05)
[2017-01-07] MEDS: PROMETHAZINE HCL 25 MG/1 ML VIAL IM PRN (09:12)
--- NOTE | 2017-01-07 09:12 | NUR ---
PRN PHENERGAN INJ Patient complained of nausea and reports one episode of vomiting this morning, administered Phenergan injection as ordered IM, well tolerated, will monitor effectiveness of medication.
[2017-01-07 09:18] LABS: HEMATOCRIT 43.9 % (40.0-50.0); HEMOGLOBIN 15.1 g/dL (14.0-18.0); MEAN CORPUSCULAR HEMOGLOBIN 30.4 uug (27.0-31.0); MEAN CORPUSCULAR HGB CONC 34 g/dL (32.0-37.0); MEAN CORPUSCULAR VOLUME 88.8 fL (82.0-92.0); PLATELET COUNT (AUTO) 204 K/uL (150-450); RED BLOOD CELL COUNT(AUTO) 4.95 MIL/uL (4.70-6.10); RED CELL DISTRIBUTION WIDTH 13.1 % (11.5-14.5); WHITE BLOOD COUNT (AUTO) 8.1 K/uL (4.0-11.2)
--- NOTE | 2017-01-07 10:12 | NUR ---
PHENERGAN REASSESSMENT Patient reports medication effective at reducing N/V will continue to monitor closely. no further episodes of vomiting noted.
[2017-01-07 11:56] LABS: EOSINOPHILS % (MANUAL) 3 % (0-8); LYMPHOCYTES % (MANUAL) 42 % (20-40); MONOCYTES % (MANUAL) 12 % (2-10); NEUTROPHILS % (MANUAL) 40 % (42-75); PLATELET ESTIMATE ADEQUATE
[2017-01-07 11:57] LABS: REACTIVE LYMPHOCYTES 3 % (0-0)
--- NOTE | 2017-01-07 12:56 | NUR ---
PRN VISTARIL patient reports increase in anxiety, provided with non pharmacological interventions with no relief, administered prn Vistaril as ordered,will monitor effectiveness.
--- NOTE | 2017-01-07 13:56 | NUR ---
VISTARIL REASSESSMENT Patient reports medication effective, and feels calm, will continue to monitor.
[2017-01-07 14:05] VITALS: BP 118/72
[2017-01-07] MEDS: CLONIDINE HCL 0.1 MG TABLET PO SCH ×2 (14:07→21:13)
[2017-01-07] MEDS: GABAPENTIN 300 MG CAPSULE PO SCH (14:07)
[2017-01-07] MEDS: DICYCLOMINE HCL 20 MG TABLET PO SCH ×2 (14:07→21:08)
--- NOTE | 2017-01-07 17:00 | NUR ---
Dr. Mike came on the unit and gave orders to discontinue 1:1 sitter. Order repeated and verified with .
[2017-01-07 17:25] VITALS: BP 110/68
--- NOTE | 2017-01-07 18:55 | NUR ---
END OF SHIFT Patient alert and oriented x4, compliant with therapeutic plan of care, vital signs with in normal limits during shift. Patient continues on Ativan taper as ordered and is currently on day 3 of taper, well tolerated, no ASE noted. Patient with admitting Dx: etoh dependence. 0900 assessment patient presented with: intermittent nausea, barely sweating, moderate anxiety mild agitation and vomiting x 1 with ciwa score of: 10; 1300 assessment patient presented with: barely sweating, moderate anxiety and mild agitation with ciwa score of: 5; 1700 assessment patient presented with mild anxiety/agitation and barely sweating with ciwa score oF: 3. PPD was read during shift, negative. Patient was administered PRN: Phenergan injection at 0912 and Vistaril at 1256 as ordered, both medications were effective one hour post administration. 1:1 sitter was discontinued as per Dr. Mike during shift. Patient encouraged to attend group therapies/sessions to learn new coping skills, denies SI/HI. encouraged increase in PO fluid intake as tolerated. Patients abdomen is soft and non distended, bowel sounds heard in all quadrats. no episodes of N/V/D noted. Safety measures in place. call light with in reach, patient endorsed to restaurant shift leader nurse, all pertinent information discussed.
--- NOTE | 2017-01-07 19:53 | NUR ---
START OF SHIFT NOTE Pt is a 26 y/o male admitted for ETOH (Vodka), Seroquel, and Hydrocodone dependence and use. Pt has NKA but reported a PMH of major depression, anxiety, insomnia, and suicide attempts x 2 (latest 3 weeks ago). Per day shift nurse pt continues on 5 day Ativan taper ( day 4 ) and is tolerating medication well, with no s/e or a/r reported. Pt is no longer on 1:1 supervision. Discontinued by . Pt received Vistaril PO PRN and Phenergan 25 mg IM PRN during the shift. Last CIWA: 3 (1600). At this time pt is calm. cooperative and compliant with plan of care. Pt denies any pain/discomfort at this time. Pt also denies any visual disturbances, auditory disturbances, and suicidal ideations at this time. Pt is encouraged to notify staff of any changes in condition or of any concerns. Pt verbalized an understanding. All safety measures in place; side rails up x 2, bed locked and in low position, and call light within reach. Will continue to monitor.
[2017-01-07 20:00] VITALS: BP 115/73
[2017-01-07] MEDS ORDERED: TRAZODONE 50 MG TABLET PO PRN (21:30)
[2017-01-07] MEDS ORDERED: TRAZODONE 100 MG TABLET ONE (22:18)
--- NOTE | 2017-01-07 22:46 | NUR ---
TRAZODONE PRN ADMINISTRATION Pt stated " Can I have the sleeper now? I have such bad insomnia." Trazodone 100 mg PO PRN was given. Pt was encouraged to notify staff of any changes in condition or of any concerns. Pt verbalized an understanding. All safety measures in place. Will monitor for effectiveness.
--- NOTE | 2017-01-07 23:40 | NUR ---
TRAZODONE PRN REASSESSMENT Pt is asleep in bed with no signs of discomfort/distress noted. Pt's breathing is even and unlabored. Respirations are 16 breaths per minute. PRN effective. All safety measures in place. Will continue to monitor.
--- NOTE | 2017-01-08 | NUR ---
CIWA AND VITALS REFUSED Pt refused to be assessed and have vitals taken at this time. Pt was encouraged x 3 with risks and benefits explained, but the pt still declined. All safety measures in place. Will continue to monitor. Addendum: 01/08/17 at 0614 by MARIO ALBERTO GARCIA LVN Amended: Links added.
[2017-01-08] MEDS: HYDROXYZINE PAMOATE 25 MG CAPSULE PO PRN (02:38)
--- NOTE | 2017-01-08 02:38 | NUR ---
VISTARIL PRN ADMINISTRATION Pt stated " I woke up and now I can't go back to sleep. Is there anyway I can I get something for anxiety?" Vistaril 50 mg PO PRN was given. Pt was encouraged to notify staff of any changes in condition or of any concerns. Pt verbalized an understanding. All safety measures in place. Will monitor for effectiveness.
--- NOTE | 2017-01-08 03:30 | NUR ---
VISTARIL PRN REASSESSMENT Pt is asleep in bed with no signs of discomfort/distress or anxiety noted. Pt's breathing is even and unlabored. Respirations are 16 breaths per minute. PRN effective. All safety measures in place. Will continue to monitor.
[2017-01-08] MEDS ORDERED: TRAZODONE 100 MG TABLET PO PRN (07:15)
--- NOTE | 2017-01-08 07:32 | NUR ---
END OF SHIFT NOTE Pt is a 26 y/o male admitted for ETOH (Vodka), Seroquel, and Hydrocodone dependence and use. Pt has NKA but reported a PMH of major depression, anxiety, insomnia, and suicide attempts x 2 (latest 3 weeks ago). Pt was placed on a 5 day Ativan taper ( day 4 ) and is tolerating medication well, with no s/e or a/r reported. Pt received Vistaril 50 mg PO PRN and Trazodone 100 mg PO PRN during the shift. Pt slept for a total of 5 hours. Last CIWA: 2(0000). All safety measures in place; side rails up x 2, bed locked and in low position, and call light within reach. Endorsed to the oncoming nurse.
--- NOTE | 2017-01-08 07:48 | NUR ---
BEGINNING OF SHIFT Patient endorsement report received from dumpling machine operator nurse, all pertinent information discussed. patient is a 26 year old male admitted on 01/03/2017 with admitting Dx: ETOH/opiate dependence. Patient with substance use history of: vodka 473-1419ml 6 months daily with history of drinking etoh for 11 years, Seroquel 500-700mg smoked daily for 2 months, with hx of smoking Seroquel for 6 months, hydrocodone 20-50mg intermittently for 6 years, hx of tramadol and cocaine abuse, and slept for 5 hours. Per dumpling machine operator patient with last ciwa score of: 2. Patient in bed with eyes closed respirations even and unlabored, received PRN: Trazadone and vistaril, per dumpling machine operator medication effective, will educated regarding plan of care for the day and medication with regimen, safety measures in place. call light with in reach, will construes to monitor closely.
[2017-01-08 08:20] VITALS: BP 111/67
[2017-01-08] MEDS: DICYCLOMINE HCL 20 MG TABLET PO SCH ×3 (09:27→20:53)
[2017-01-08] MEDS: MULTIVITAMINS,THERAPEUTIC TABLET PO SCH (09:27)
[2017-01-08] MEDS: CLONIDINE HCL 0.1 MG TABLET PO SCH ×3 (09:27→20:56)
[2017-01-08] MEDS: PANTOPRAZOLE SODIUM 40 MG TABLET.DR PO SCH (09:27)
[2017-01-08] MEDS: THIAMINE HCL 100 MG TABLET PO SCH (09:27)
[2017-01-08] MEDS: FOLIC ACID 1 MG TABLET PO SCH (09:27)
[2017-01-08] MEDS: ESCITALOPRAM OXALATE 10 MG TABLET PO SCH (09:27)
[2017-01-08] MEDS: GABAPENTIN 300 MG CAPSULE PO SCH ×3 (09:28→20:56)
[2017-01-08] MEDS: LORAZEPAM 1 MG TABLET PO SCH ×2 (09:29→20:54)
[2017-01-08 12:23] VITALS: BP 118/71
[2017-01-08] MEDS ORDERED: BUPRENORPHINE HCL 2 MG TAB.SUBL SL ONE (13:00)
--- NOTE | 2017-01-08 13:30 | NUR ---
MD COMMUNICATION/ONE TIME DOSE OF SUBUTEX Patient presented with dilated pupils, flushed, difficulty sitting still, mild bone and joint aches, stomach cramps, irritable, and anxiety with cow score of: 8, as per MD, opiate withdrawal symptoms per MD adminstere one time dose of subutex 4mg sl, medication adminstered as ordered, will monitor effectiveness.
--- NOTE | 2017-01-08 14:00 | NUR ---
SUBUTEX REASSESSMENT Patient reports medication was effective, presenting with: c/o chills, dilated pupils, mild bone and joint aches, mild stomach cramps, and mild anxiety with cow score of: 5, will continue to monitor. encouraged adequate PO fluid intake as tolerated.
[2017-01-08] MEDS: BACLOFEN 20 MG TABLET PO SCH ×2 (15:05→20:55)
[2017-01-08] MEDS: PROMETHAZINE HCL 25 MG/1 ML VIAL IM PRN (15:11)
--- NOTE | 2017-01-08 16:11 | NUR ---
PHENERGAN REASSESSMENT Patient reports medication effective at reducing N/V will continue to monitor closely. no further episodes of vomiting noted.
[2017-01-08 17:27] VITALS: BP 118/70
--- NOTE | 2017-01-08 19:10 | NUR ---
END OF SHIFT Patient alert and oriented x4, compliant with therapeutic plan of care, vital signs with in normal limits during shift. Patient continues on Ativan taper as ordered and is currently on day 4 of taper, well tolerated, no ASE noted. Patient with admitting Dx: etoh dependence. 0900 assessment patient presented with: anxiety, barely sweating, anxiety and mild agitation with ciwa score of: 5; 1300 assessment patient presented with:anxiety, barely sweating, anxiety and mild agitation with ciwa score of: 5; 1700 assessment patient presented with: anxiety, barely sweating, anxiety and mild agitation with ciwa score of: 5. 1330: presented with s/sx of opiate withdrawal, cow assessment completed noted flushed, dilated pupils, difficulty sitting still, mild bone and joint aches, stomach cramps, and irritable with cow score of: 8 administered one time order of Subutex 4mg sl as ordered, reassessed 30 mins post administration, medication effective cow score decreased to 5, will continue to monitor. Patient administered PRN: Phenergan injection at 1511 for nausea with one episode of vomiting, ,mediation effective one hour post administration. Patient encouraged to attend group therapies/sessions to learn new coping skills, denies SI/HI. encouraged increase in PO fluid intake as tolerated. Patients abdomen is soft and non distended, bowel sounds heard in all quadrats. no episodes of N/V/D noted. Safety measures in place. call light with in reach, patient endorsed to restaurant shift leader nurse, all pertinent information discussed.
[2017-01-08 20:00] VITALS: BP 110/67
--- NOTE | 2017-01-08 20:26 | NUR ---
START OF SHIFT NOTE Pt is a 26 y/o male admitted for ETOH (Vodka), Seroquel, and Hydrocodone dependence and use. Pt has NKA but reported a PMH of major depression, anxiety, insomnia, and suicide attempts x 2 (latest 3 weeks ago). Per day shift nurse pt continues on 5 day Ativan taper ( day 4 ) and is tolerating medication well, with no s/e or a/r reported. Pt received Subutex 4 mg PO PRN x1 and Phenergan 25 mg IM PRN during the day shift. Last CIWA: 5 (1600). At this time pt is calm, cooperative and compliant with plan of care. Pt denies any pain/discomfort at this time. Pt also denies any visual disturbances, auditory disturbances, and suicidal ideations at this time. Pt is encouraged to notify staff of any changes in condition or of any concerns. Pt verbalized an understanding. All safety measures in place; side rails up x 2, bed locked and in low position, and call light within reach. Will continue to monitor.
[2017-01-08] MEDS ORDERED: KETOROLAC TROMETHAMINE 30 MG INJ IM PRN (20:30)
[2017-01-08] MEDS ORDERED: BUPRENORPHINE HCL 2 MG TAB.SUBL SL SCH (21:00)
--- NOTE | 2017-01-09 | NUR ---
CIWA, COW, AND VITALS REFUSED Pt refused to be assessed and have vitals taken at this time. Pt was encouraged x 3 with risks and benefits explained, but the pt still declined. All safety measures in place. Will continue to monitor. Addendum: 01/09/17 at 0250 by MARIO ALBERTO GARCIA LVN Amended: Links added.
[2017-01-09 04:00] VITALS: BP 109/65
[2017-01-09] MEDS: PROMETHAZINE HCL 25 MG/1 ML VIAL IM PRN ×2 (04:00→08:36)
--- NOTE | 2017-01-09 04:01 | NUR ---
RN note Phenergan Pt c/o feeling nauseous, with vomiting x1. Administered Phenergan 25 mg IM. No SOB noted. Will monitor and reassess.
[2017-01-09] MEDS: METHOCARBAMOL 750 MG TABLET PO PRN (04:09)
[2017-01-09] MEDS: HYDROXYZINE PAMOATE 25 MG CAPSULE PO PRN (04:09)
--- NOTE | 2017-01-09 04:09 | NUR ---
RN note Vistaril and Robaxin PRN Pt c/o feeling anxious and generalized muscle pain=5/10. Administered Vistaril 50 mg PO and Robaxin 750 mg PO. Will monitor and reassess.
--- NOTE | 2017-01-09 05:05 | NUR ---
PHENERGAN, VISTARIL, AND ROBAXIN PRN REASSESSMENT Pt is asleep in bed with no signs of discomfort/distress noted. PRNS effective. All safety measures in place. Will continue to monitor.
[2017-01-09] MEDS: PANTOPRAZOLE SODIUM 40 MG TABLET.DR PO SCH (07:04)
--- NOTE | 2017-01-09 07:33 | NUR ---
BEGINNING OF SHIFT Patient endorsement report received from night worker nurse, all pertinent information discussed. patient is a 26 year old male admitted on 01/03/2017 with admitting Dx: ETOH/opiate dependence. Patient with substance use history of: vodka 473-1419ml 6 months daily with history of drinking etoh for 11 years, Seroquel 500-700mg smoked daily for 2 months, with hx of smoking Seroquel for 6 months, hydrocodone 20-50mg intermittently for 6 years, hx of tramadol and cocaine abuse, and slept for 4 hours. Per night worker patient with last ciwa score of: 7 and last cow score of: 7. Patient in bed with eyes closed respirations even and unlabored, received PRN: vistaril, phenergan injection and robaxin per night worker medications effective, will educated regarding plan of care for the day and medication with regimen, safety measures in place. call light with in reach, will construes to monitor closely.
--- NOTE | 2017-01-09 07:41 | NUR ---
END OF SHIFT NOTE Pt is a 26 y/o male admitted for ETOH (Vodka), Seroquel, and Hydrocodone dependence and use. Pt has NKA but reported a PMH of major depression, anxiety, insomnia, and suicide attempts x 2 (latest 3 weeks ago). Pt was placed on a 5 day Ativan taper ( day 5 ) and is tolerating medication well, with no s/e or a/r reported. Pt received Vistaril 50 mg PO PRN and Robaxin 750 mg PO PRN, and Phenergan 25 mg IM PRN(Pt had x2 emesis during a smoke break) during the shift. Pt slept for a total of 4 hours(intermittently). Last COW:7 and CIWA: 7 (0400). All safety measures in place; side rails up x 2, bed locked and in low position, and call light within reach. Endorsed to the oncoming nurse.
[2017-01-09 08:13] VITALS: BP 114/65
[2017-01-09] MEDS: THIAMINE HCL 100 MG TABLET PO SCH (08:35)
[2017-01-09] MEDS: ESCITALOPRAM OXALATE 10 MG TABLET PO SCH (08:35)
[2017-01-09] MEDS: MULTIVITAMINS,THERAPEUTIC TABLET PO SCH (08:35)
[2017-01-09] MEDS: GABAPENTIN 300 MG CAPSULE PO SCH ×3 (08:35→21:49)
[2017-01-09] MEDS: BACLOFEN 20 MG TABLET PO SCH ×3 (08:36→21:48)
[2017-01-09] MEDS: FOLIC ACID 1 MG TABLET PO SCH (08:36)
[2017-01-09] MEDS: DICYCLOMINE HCL 20 MG TABLET PO SCH ×3 (08:36→21:50)
[2017-01-09] MEDS: CLONIDINE HCL 0.1 MG TABLET PO SCH ×3 (08:36→21:48)
--- NOTE | 2017-01-09 08:36 | NUR ---
PRN PHENERGAN Patient reported two episodes of vomiting and feeling nauseous, administered Phenergan injection as ordered, well tolerated. abdomen is soft and non distended, bowel sounds heard in all quadrants. will monitor effectiveness of medication.
--- NOTE | 2017-01-09 09:36 | NUR ---
PHENERGAN REASSESSMENT Patient reports medication some what effective, still feels a little bit nauseous but reports does not feel like vomiting, will continue to monitor, patient encouraged increase in PO fluid intake as tolerated, will conitnue to monitor.
--- NOTE | 2017-01-09 10:00 | NUR ---
COW/CIWA ASSESSMENT/4 day Subutex taper Patient presenting with heart rate of 84, restlessness, mild bone and joint aches, irritable, anxiety, c/o chills, mild agitation, vomiting, and nausea with cow score of: 9, and ciwa score of:8; patient reported to staff that he was using opiates on a daily basis for the past 6 months, patient exhibiting s/sx of withdrawal, as per Dr. Mike, Per MD he will start patient on a 4 day Subutex taper, will administer medications as ordered, and will continue to monitor cow and ciwa scores and vital signs as ordered. safety measures in place. call light with in reach, will continue to monitor closely.
[2017-01-09 11:14] VITALS: BP 122/68
[2017-01-09] MEDS: ONDANSETRON ODT 4 MG TAB.RAPDIS SL PRN ×2 (11:15→18:46)
--- NOTE | 2017-01-09 11:15 | NUR ---
PRN ZOFRAN Patient reports feels increase in nausea, and reports vomiting x2, administered Zofran 4mg sl as ordered, notified Dr. Mike of patients multiple episodes of emesis, will continue to monitor closely.
[2017-01-09] MEDS: BUPRENORPHINE HCL 2 MG TAB.SUBL SL SCH ×3 (11:16→21:49)
--- NOTE | 2017-01-09 12:00 | NUR ---
COMMUNICATION Patient to start IVF D5 /2 NS 125ml/hr for 8 hours for hydrations, d/t multiple episodes of vomiting. Addendum: 01/09/17 at 1357 by JIGAR WEBER LVN clarification: 1000ml every 8 hours at 125ml/hr.
--- NOTE | 2017-01-09 12:15 | NUR ---
SALINE LOCK INSERTION Patient inserted a 22 gauge to left hand,, procedure explained prior to insertion with good verbal understanding, aseptic technic observed during insertion, flushed with normal saline, line is patent and intact.
[2017-01-09] MEDS: IV D5 1/2 NS 1000 ML 1,000 ML IV SCH ×2 (13:04→23:58)
--- NOTE | 2017-01-09 13:04 | NUR ---
IVF Patient started on IVF as ordered at 1304, IV site intact, no s/sx of infiltration noted. will continue to monitor closely.
[2017-01-09 15:27] VITALS: BP 122/64
[2017-01-09 17:26] VITALS: BP 112/60
[2017-01-09] MEDS: LORAZEPAM 1 MG TABLET PO SCH ×2 (18:00→21:47)
--- NOTE | 2017-01-09 18:47 | NUR ---
PRN ZOFRAN Patient reports feels increase in nausea, and reports vomiting x1, administered Zofran 4mg sl as ordered, will endorsed to shift mgr nurse, to reassess effectiveness of medication.
--- NOTE | 2017-01-09 19:04 | NUR ---
END OF SHIFT Patient alert and oriented x4, compliant with therapeutic plan of care, vital signs with in normal limits during shift. Patient completed Ativan taper, but during shift taper was extended by Dr. milton, patient was also started at a 4 day Subutex taper for s/sx of opiate withdrawal, first dose was administered today during shift, well tolerated, no ASE noted. Patient with admitting Dx: etoh/opiate dependence. 0900 assessment patient presented with: heart rate of 84, restlessness, mild bone and joint aches, irritable, anxiety, c/o chills, mild agitation, and vomiting with cow score of: 9 and ciwa score of: 8; 1113 assessment patient presented with: heart rate of 89, flushed, restless, mild bone and joint aches, moist eyes, vomiting, irritable, anxiety goosebump with cow score of: 14; 1300 assessment patient presented with: heart rate of 81, c/o chills, moist eyes, nausea, mild anxiety and goosebump with cow score of: 9 and ciwa score of: 2; 1700 assessment patient presented with: c/o chills, moist eyes, nausea, mild anxiety and goosebump with cow score of: 8 and ciwas score of: 2. 1800 dose of Ativan was held as per Md orders, d/t patient was noted with unsteady gait, patient is alert and oriented x4, educated regarding fall precautions and safety with good verbal understanding. MD notified medication held. Patient encouraged to attend group therapies/sessions to learn new coping skills, noted attending and participating. denies SI/HI. During shift patient was started on IVF D5 1/2 NS for hydrations d/t multiple episodes of emesis. IVF well tolerated infusing as ordered, saline lock intact and patent, no s/sx of infx/infiltration. Administered PRN; Phenergan as ordered at 0836, Zofran as ordered at 1115, and Zofran as ordered at 1847. encouraged increase in PO fluid intake as tolerated. Patients abdomen is soft and non distended, bowel sounds heard in all quadrats. no episodes of N/V/D noted. Safety measures in place. call light with in reach, patient endorsed to stock pitcher nurse, all pertinent information discussed.
[2017-01-09 20:00] VITALS: BP 114/75
--- NOTE | 2017-01-09 20:00 | NUR ---
1999 Patient received awake, alert and up to the nurses station, inquiring about who his nurse is now. Nurse greeted patient and introduced herself, while accompanying him back to his room # 327. Patient's gait is sure, steady. Patient responds to nurse's greeting with a smile and a handshake, while he introduced himself to nurse. Patient is oriented to person, place, day, date and his personal situation. Easily reoriented to time. Patient's color is pink and his skin is warm, very slightly moist and intact. Lung sounds are clear bilaterally and active bowel sounds are noted X 4 abdominal Quads, per auscultation. IV solution of D5.45 NS infusing vis IV pump at 125ml/hr into Left sarah beth. No signs infiltration at clean, dry needle site. Patient denies any or other discomforts and he voices no requests at this time. Patient also denies any present suicidal ideations, though he did speak to nurse briefly about his latest suicide attempt, that occurred a few weeks ago. Patient allowed to ventilate his feelings and positive encouragement then given to patient. Patient states that though he had some nausea, 'dry heaves' and some vomiting on previous shift, he now feels 'okay'. Patient states that he has been taking fluids ad destin and eating as much as he feel like eating. Vital signs are: 98.3-88-18 114/75, O2 Sat 94%, COWS 5, CIWA 4. Patient moves all his extremities fully WNL. Patient is admitted for: Alcohol (Vodka), Seroquel and Hydrocodone withdrawal and he is currently on a 4-Day Subutex medication taper and extended Ativan medication taper and he is apparently tolerating these medications fairly well. Fall/Seizure precautions continue. Patient is friendly, cooperative and verbally appropriate, though slightly guarded and anxious when interacting with nurse. Bed is locked and in lowest position, bed rails are up X 2 and call light within patient's easy reach.
[2017-01-10] VITALS: BP 104/71
[2017-01-10] MEDS: IV D5 1/2 NS 1000 ML 1,000 ML IV SCH ×4 (03:30→22:03)
[2017-01-10 04:00] VITALS: BP 118/78
--- NOTE | 2017-01-10 06:30 | NUR ---
0630 Patient slept a total of 7 hours and he had 1.015 ml P.O..intake and 1,500 ml IV. He was up to the bathroom for 2 voids and no stools. No prn medications given this shift. V/SS afebrile, COWS 5, CIWA 4. IV site at left sarah beth is clean, dry and with no sx infiltration at needle site. Patient is presently resting comfortably with eyes closed and respirations deep, regular, stenorous at 16. Patient is in stable condition at this time.
[2017-01-10] MEDS: ACETAMINOPHEN 325 MG TABLET PO PRN (07:10)
[2017-01-10] MEDS: PANTOPRAZOLE SODIUM 40 MG TABLET.DR PO SCH (07:10)
--- NOTE | 2017-01-10 07:10 | NUR ---
PRN MEDICATION: Prn Tylenol 650 mg p.o. given for patient's c/o headache, 6-7/10 pain scale.
--- NOTE | 2017-01-10 07:32 | NUR ---
START OF SHIFT Received report from night order selector nurse. 26 year old male patient admitted on 01/03/17 for ETOH, Seroquel and Opiate dependence. Pt is A/O x4. Pt is placed on a 5 day Ativan taper that was started on 01/04/17 and 4 day Subutex taper started on 01/09/17. Pt has history of major depression, anxiety, insomnia and suicide attempts. Pt denies SI/HI or hallucinations at this time. Pt calming reassurance provided, pt stated he will let nurse know if he needs to verbalize feelings. CXR was completed, MD is aware of results. Skin remains warm, dry and intact. Pt is receiving IVF of D5 1/2 NS at 125 ml/hr. Pt has bouts of unsteadiness and uses wheelchair as needed. All needs met at this time. Will continue to monitor.
[2017-01-10 08:02] LABS: CALCIUM 8.3 mg/dL (8.5-10.1); CREATININE 1.2 mg/dL (0.6-1.3); POTASSIUM 4.2 mmol/L (3.5-5.1)
[2017-01-10 08:07] VITALS: BP 126/75
[2017-01-10] MEDS: THIAMINE HCL 100 MG TABLET PO SCH (08:09)
[2017-01-10] MEDS: DICYCLOMINE HCL 20 MG TABLET PO SCH ×3 (08:09→20:09)
[2017-01-10] MEDS: LORAZEPAM 1 MG TABLET PO SCH ×3 (08:09→20:10)
[2017-01-10] MEDS: CLONIDINE HCL 0.1 MG TABLET PO SCH ×3 (08:09→20:10)
[2017-01-10] MEDS: ESCITALOPRAM OXALATE 10 MG TABLET PO SCH (08:10)
[2017-01-10] MEDS: FOLIC ACID 1 MG TABLET PO SCH (08:10)
[2017-01-10] MEDS: BACLOFEN 20 MG TABLET PO SCH ×3 (08:10→20:21)
[2017-01-10] MEDS: MULTIVITAMINS,THERAPEUTIC TABLET PO SCH (08:10)
[2017-01-10] MEDS: GABAPENTIN 300 MG CAPSULE PO SCH ×3 (08:10→20:09)
[2017-01-10] MEDS ORDERED: BUPRENORPHINE HCL 2 MG TAB.SUBL SL SCH (09:00)
[2017-01-10] MEDS: ONDANSETRON 4 MG/2 ML VIAL IV PRN ×2 (12:31→20:08)
--- NOTE | 2017-01-10 12:36 | NUR ---
PRN ZOFRAN Pt c/o of increased nausea, no emesis noted. Pt educated to lay down, PRN Zofran administered as ordered. Will reassess.
[2017-01-10 13:04] VITALS: BP 113/68
--- NOTE | 2017-01-10 13:36 | NUR ---
REASSESSMENT Pt denies nausea at this time. Medication was effective.
[2017-01-10] MEDS: BUPRENORPHINE HCL 2 MG TAB.SUBL SL SCH ×2 (14:41→20:09)
--- NOTE | 2017-01-10 15:55 | NUR ---
1500 MEDS NON ADMIN Bentyl 40 mg, Clonidine 0.1mg and Baclofen [address] Mike orders became it makes pt too drowsy.
[2017-01-10 16:00] VITALS: BP 108/60
--- NOTE | 2017-01-10 16:41 | NUR ---
IV REMOVED IV was removed, patient states tape came lose and iv was dislodged. Ice pack applied.
--- NOTE | 2017-01-10 16:55 | NUR ---
IV STARTED IV started on right hand, #22 gauge, IV is patent, flushed with 10 cc NS, no redness or infiltration noted. IVF running as ordered.
--- NOTE | 2017-01-10 18:59 | NUR ---
START OF SHIFT NOTE Patient endorsed by day shift nurse. SBAR report received. Patient is a 26 years old male admitted to [facility] on 01/03/2017 for ETOH/Opioid/Seroquel Dependence., placed on 5 day Ativan taper started on 01/04/2017 at 09:00, and 4 day Subutex taper started on 01/09/2017, and extended Ativan taper. NKA, NKFA, NKDA, Regular Diet, Full Code, Fall and Seizures Precautions. Patient denied History of Seizures. PMH: Major Depression, Anxiety, Insomnia, Suicide attempts x2. Last Suicide attempt's 3 weeks ago. Patient does not have an active plan. 1:1 in close proximity for safety. Substance Use History: ETOH/Vodka PO " 473ml - 1419 ml daily during 6 months current, and 11 years total. ". Last time " use of " 1 pint was on 01/03/2017". Seroquel smoke " 500mg - 700 mg 2months current, and 6 months total". Last dose of "400 mg was on 01/03/2017". Hydrocodone PO "20-50 mg , intermittently during 6 years". Last was on 01/01/2017. History of Tramadol and Cocaine abuse. CIWA 6; COWS 6. Patient c/o increased anxiety, bones and muscles aching, tremors that can felt, sweating, nausea, mild headache. VS: T: 98'6; HR: 69; RR: 16; Room Air Sat: 98%; BP: 128/76; Generalized Pain level 7/10. Patient has IV on Right Hand with ordered IVF D5%- 1/2 NS at 125 ml/hr. IV site is patent and intact. Patient is tolerated well. Breathing is unlabored and even. Lungs Sound are clear bilaterally. Patient denied SOB and chest pain. Heart rate is regular. BS is active in all x4 quadrants. Patient denied N/V, and diarrhea. Skin is warm and moisture by touch. Patient has acne on the face, chest, back, on the Right and Left shoulders. Patient remains compliant with medication and diet regime. Patient was encouraged to attend activity groups. Safety measures on place by hospital policy: Call light within reach; Bed in lowest position and locked; side rails up x2. Will continue to monitor.
--- NOTE | 2017-01-10 18:59 | NUR ---
END OF SHIFT Endorsed to cage shift manager nurse. 26 year old male patient admitted on 01/03/17 for ETOH, Seroquel and Opiate dependence. Pt is A/O x4. Pt is placed on a 5 day Ativan taper that was started on 01/04/17 and 4 day Subutex taper started on 01/09/17. Pt has history of major depression, anxiety, insomnia and suicide attempts. Pt denies SI/HI or hallucinations at this time. Pt is onm a 1:1 for unsteady gait. Skin remains warm, dry and intact. Right hand IV started #22 gauge, patent and intact. Pt is receiving IVF of D5 1/2 NS at 125 ml/hr. Pt has adequate caloric and fluid intake.n Most recent COWS 6, CIWA 7. V/S remain WNL. All needs met at this time. night shift supervisor nurse will continue to monitor.
[2017-01-10 20:00] VITALS: BP 128/76
--- NOTE | 2017-01-10 20:08 | NUR ---
PRN ZOFRAN ADMINISTRATION Patient c/o nausea. Patient's assessed. Patient denied vomiting at this time. PRN Zofran IVP on Right hand administrated as ordered. Patient tolerated well. Safety measures on place by hospital policy: Call light within reach; Bed in lowest position and locked; side rails up x2. Will continue to monitor.
--- NOTE | 2017-01-10 20:38 | NUR ---
REASSESSMENT Patient denied N/V at this time. PRN Zofran IVP was effective.Safety measures on place by hospital policy: Call light within reach; Bed in lowest position and locked; side rails up x2. Will continue to monitor.
[2017-01-11] VITALS: BP 114/67
[2017-01-11] MEDS: METHOCARBAMOL 750 MG TABLET PO PRN ×2 (00:47→22:12)
[2017-01-11] MEDS: HYDROXYZINE PAMOATE 25 MG CAPSULE PO PRN ×2 (00:47→22:12)
--- NOTE | 2017-01-11 00:47 | NUR ---
PRN ROBAXIN PO AND PRN VISTARIL PO ADMINISTRATION Pt c/o muscles spasm an increased anxiety. Pt 's assessed. PRN Vistaril PO and PRN Robaxin PO was discussed with patient. Patient's educated for actions, adverse reactions and side effects of Vistaril and Robaxin. Patient returns his knowledge back by verbalizing understanding. PRN Vistaril PO and PRN Robaxin PO was administrated as ordered. Patient tolerated well. Safety measures on place by hospital policy: Call light within reach; Bed in lowest position and locked; side rails up x2. Will continue to monitor.
--- NOTE | 2017-01-11 01:47 | NUR ---
REASSESSMENT Patient lying in his bed with closed eyes. RR: 14: Breathing is unlabored and even. PRN Vistaril PO and PRN Robaxin PO were effective. Safety measures on place by hospital policy: Call light within reach; Bed in lowest position and locked; side rails up x2. Will continue to monitor.
[2017-01-11 04:00] VITALS: BP 115/78
--- NOTE | 2017-01-11 05:00 | NUR ---
Patient refused IVF IV's removed by patient from his Right Hand. Site was intake. No Bleeding. Bandage placed. Doctor Dale notified. Safety measures on place by hospital policy: Call light within reach; Bed in lowest position and locked; side rails up x2. Will continue to monitor.
[2017-01-11] MEDS: PANTOPRAZOLE SODIUM 40 MG TABLET.DR PO SCH (07:00)
--- NOTE | 2017-01-11 07:11 | NUR ---
END OF SHIFT NOTE Patient endorsed by day shift nurse. SBAR report received. Patient is a 26 years old male admitted to [facility] on 01/03/2017 for ETOH/Opioid/Seroquel Dependence., placed on 5 day Ativan taper started on 01/04/2017 at 09:00, and 4 day Subutex taper started on 01/09/2017, and extended Ativan taper. NKA, NKFA, NKDA, Regular Diet, Full Code, Fall and Seizures Precautions. Patient denied History of Seizures. PMH: Major Depression, Anxiety, Insomnia, Suicide attempts x2. Last Suicide attempt's 3 weeks ago. Patient does not have an active plan. 1:1 in close proximity for safety. Substance Use History: ETOH/Vodka PO " 473ml - 1419 ml daily during 6 months current, and 11 years total. ". Last time " use of " 1 pint was on 01/03/2017". Seroquel smoke " 500mg - 700 mg 2months current, and 6 months total". Last dose of "400 mg was on 01/03/2017". Hydrocodone PO "20-50 mg , intermittently during 6 years". Last was on 01/01/2017. History of Tramadol and Cocaine abuse. CIWA 6; COWS decreased from 8 to 3. CIWA decreased from 8 to 4. Patient presented with anxiety, bones and muscles aching, tremors that can felt, sweating, nausea, mild headache. VS WNL. Patient refused IV :removed IV from Right Hand at 05:00. Ordered IVF D5%- 1/2 NS at 125 ml/hr's stopped. Doctor MD Dale notified. IV site is patent and intact. No Bleeding on site. Pressure Bandage placed. Patient tolerated well. Patient remains compliant with medication and diet regime. Patient was encouraged to attend activity groups. Safety measures on place by hospital policy: Call light within reach; Bed in lowest position and locked; side rails up x2.
--- NOTE | 2017-01-11 07:52 | NUR ---
START OF SHIFT Received report from horologist nurse. 26 year old male patient admitted on 01/03/17 for ETOH, Seroquel and Opiate dependence. Pt is A/O x4. Pt is placed on a 5 day Ativan taper that was started on 01/04/17 and 4 day Subutex taper started on 01/09/17. Pt has history of major depression, anxiety, insomnia and suicide attempts. Pt denies SI/HI or hallucinations at this time. Pt is on a 1:1 for unsteady gait. Skin remains warm, dry and intact. Pt removed IV, is aware. Pt has adequate caloric and fluid intake. Most recent COWS 3, CIWA 4. No PRN medications needed or administered, pt slept for 3 hours. V/S remain WNL. All needs met at this time. soldering technician nurse will continue to monitor.
[2017-01-11 08:00] VITALS: BP 120/76
[2017-01-11 08:27] LABS: CALCIUM 8.5 mg/dL (8.5-10.1); CREATININE 1.1 mg/dL (0.6-1.3); MAGNESIUM 2.2 mg/dL (1.8-2.4); POTASSIUM 4.1 mmol/L (3.5-5.1)
[2017-01-11] MEDS: ESCITALOPRAM OXALATE 10 MG TABLET PO SCH (08:53)
[2017-01-11] MEDS: LORAZEPAM 1 MG TABLET PO SCH ×2 (08:53→21:09)
[2017-01-11] MEDS: FOLIC ACID 1 MG TABLET PO SCH (08:53)
[2017-01-11] MEDS: CLONIDINE HCL 0.1 MG TABLET PO SCH ×3 (08:53→21:08)
[2017-01-11] MEDS: GABAPENTIN 300 MG CAPSULE PO SCH ×3 (08:54→21:08)
[2017-01-11] MEDS: BUPRENORPHINE HCL 2 MG TAB.SUBL SL SCH ×3 (08:54→21:09)
[2017-01-11] MEDS: THIAMINE HCL 100 MG TABLET PO SCH (08:54)
[2017-01-11] MEDS: DICYCLOMINE HCL 20 MG TABLET PO SCH ×3 (08:54→21:09)
[2017-01-11] MEDS: MULTIVITAMINS,THERAPEUTIC TABLET PO SCH (08:54)
[2017-01-11] MEDS: BACLOFEN 20 MG TABLET PO SCH ×3 (08:54→21:08)
[2017-01-11] MEDS: ONDANSETRON ODT 4 MG TAB.RAPDIS SL PRN (09:55)
--- NOTE | 2017-01-11 09:56 | NUR ---
PRN ZOFRAN PT C/O NAUSEA THAT IS UNRELIEVED BY NONPHARMACOLOGICAL METHODS. PRN ZOFRAN ADMINISTERED ORDERED. WILL REASSESS
--- NOTE | 2017-01-11 10:57 | NUR ---
REASSESSMENT ZOFRAN EFFECTIVE. PT DENIES N/V AT THIS TIME.
[2017-01-11 13:08] VITALS: BP 112/70
[2017-01-11 18:06] VITALS: BP 126/68
--- NOTE | 2017-01-11 18:49 | NUR ---
START OF SHIFT Patient is a 26 years old male admitted to [facility] on 01/03/2027 for Alcohol (Vodka)/Benzo/ Seroquel Dependence, placed on 5 day Ativan taper started on 01/04/2017 at 09:00, and 4 day Subutex taper started 01/09/2017 and extended Ativan taper. NKA, NKDA, NKFA, Regular Diet, Full Code, Fall and Seizures Precautions. No History of Seizures. Substance use: Vodka since 2005; and "473-1419 ml daily last 6 months" .Hydrocodone PO "20-50 mg intermittently since 2010". Seroquel(smoke) - last 6 months. Currently, last 2 months: "500-700 mg daily, smoke". Past Medical History: Suicide Attempts x2: Last was 3 weeks ago. Major Depression; Anxiety; Insomnia. Patient denied past treatment and hospitalizations. Upon assessment patient is alert and oriented x 4. 1:1 sitter for unsteady gait. CIWA 5; COWS 5. Patient presents with anxiety, tremors that can felt, nervousness, sweating. bones and muscles aching. Patient has VS WNL. Breathing is unlabored and even. Lungs are clear bilaterally. Patient denied SOB and heart pain. Stomach is soft and non-distended. BS are active in all x4 quadrants. Patient denies N/V at this time. Skin is intact, warm, moist to touch. Patient attended activity groups. Patient remains compliant with medications and diet regime. Patient's educated for safety issues. Patient return his knowledge back by verbalized understanding. Patient will discharging tomorrow, in the morning. Safety measures in the place by hospital policy:Call light within reach; Bed in the lowest position and locked; Bed rails up x2. Will continue to monitor.
--- NOTE | 2017-01-11 18:49 | NUR ---
D/C NOTES 26 year old male patient admitted on 01/03/17 for ETOH, Seroquel and Opiate dependence. Pt is A/O x4. Pt is placed on a 5 day Ativan taper that was started on 01/04/17 and 4 day Subutex taper started on 01/09/17. Pt has history of major depression, anxiety, insomnia and suicide attempts. Pt denies SI/HI or hallucinations at this time. Pt is on a 1:1 for unsteady gait. Pt has adequate caloric and fluid intake. Most recent COWS 4, CIWA 3. PRN Zofran administered and effective. V/S remain WNL. All needs met at this time. fast food shift lead nurse will continue to monitor.
[2017-01-11 20:00] VITALS: BP 123/77
--- NOTE | 2017-01-11 23:12 | NUR ---
REASSESSMENT Patient is sleeping in his bed. Breathing is even and unlabored. RR:14.PRN Vistaril PO, PRN Robaxin PO were effective. Safety measures in the place by hospital policy: Call light within reach, bed in the lowest position and locked, bed rails up x2. Will continue to monitor.
[2017-01-11] MEDS: PROMETHAZINE HCL 25 MG/1 ML VIAL IM PRN (23:30)
--- NOTE | 2017-01-11 23:45 | NUR ---
PRN PHENERGAN ADMINISTRATION Patient c/ Nausea an Vomiting x2. Patient assessed. PRN Phenergan IM discussed with patient. Patient's educated for actions, adverse reactions and Side Effects of Phenergan. Patient return back his knowledge by verbalizing understanding. PRN Phenergan IM Inj as ordered given to Right Upper Outer Dorsogluteal Quadrant. Patient tolerated well. Safety measures in the place by hospital policy: Call light within reach; Bed in the lowest position and locked; Bed rails up x2. Will continue to monitor.
[2017-01-12] VITALS: BP 119/69
--- NOTE | 2017-01-12 00:30 | NUR ---
REASSESSMENT Patient sleeping in his bed. Breathing is even and unlabored. RR: 14. Patient has no N/V since PRN Phenergan 's administrated. PRN Phenergan was effective.Safety measures on place by hospital policy: Call light within reach; Bed in lowest position and locked; side rails up x2. 1:1 sitter in the room with patient, as ordered. Will continue to monitor.
--- NOTE | 2017-01-12 02:58 | NUR ---
PRN TRAZODONE PO ADMINISTRATION PATIENT C/O INSOMNIA AND ASKED SLEEP AID.PRN TRAZODONE PO GIVEN ORDERED. Safety measures in the place by hospital policy:Call light within reach; Bed in the lowest position and locked; Bed rails up x2. Will continue to monitor.
[2017-01-12] MEDS ORDERED: TRAZODONE 50 MG TABLET ONE (03:02)
[2017-01-12] MEDS ORDERED: TRAZODONE 50 MG TABLET PO SCH (03:10)
--- NOTE | 2017-01-12 03:58 | NUR ---
REASSESSMENT Patient lying in his bed with closed eyes.RR: 14: Breathing is unlabored and even. PRN Trazodone PO was effective. Safety measures on place by hospital policy: Call light within reach; Bed in lowest position and locked; side rails up x2. 1:1 sitter at bedside with patient. Will continue to monitor.
[2017-01-12 04:00] VITALS: BP 124/61
[2017-01-12] MEDS: PANTOPRAZOLE SODIUM 40 MG TABLET.DR PO SCH (06:49)
--- NOTE | 2017-01-12 07:05 | NUR ---
END OF SHIFT NOTE Patient is a 26 years old male admitted to [facility] on 01/03/2017 for ETOH/Opioid/Seroquel Dependence., placed on 5 day Ativan taper started on 01/04/2017 at 09:00, and 4 day Subutex taper started on 01/09/2017, and extended Ativan taper. NKA, NKFA, NKDA, Regular Diet, Full Code, Fall and Seizures Precautions. Patient denied History of Seizures. PMH: Major Depression, Anxiety, Insomnia, Suicide attempts x2. Last Suicide attempt's 3 weeks ago. Patient does not have an active plan. Substance Use History: ETOH/Vodka PO " 473ml - 1419 ml daily during 6 months current, and 11 years total. ". Last time " use of " 1 pint was on 01/03/2017". Seroquel smoke " 500mg - 700 mg 2months current, and 6 months total". Last dose of "400 mg was on 01/03/2017". Hydrocodone PO "20-50 mg intermittently during 6 years". Last was on 01/01/2017. History of Tramadol and Cocaine abuse. Patient presented with anxiety, bones and muscles aching, tremors that can felt, sweating, nausea, mild headache. Most recent COWS 3. CIWA 3. VS WNL. PRN Phenergan IM for N/V; PRN Robaxin Muscles relaxant; PRN VIstaril PO for Anxiety; PRN Trazodone PO for insomnia administrated and were effective. Patient remains compliant with medication and diet regime. Patient was encouraged to attend activity groups. Patient slept 7 hours; Intake 1565 ml; output x2. Safety measures in the place by hospital policy: Call light within reach; Bed in the lowest position and locked; Bed rails up x2. 1:1 sitter for unsteady gait. Patient endorsed to day shift nurse in stable condition. Report given.
--- NOTE | 2017-01-12 07:30 | NUR ---
START OF SHIFT received from evening or night nurse supervisor nurse. Client is a 26 year old male admitted on 01/03/2017 with admitting Dx: ETOH/opiate withdrawal. Patient with substance use history of: vodka 473-1419ml 6 months daily with history of drinking etoh for 11 years, Seroquel 500-700mg smoked daily for 2 months, with hx of smoking Seroquel for 6 months, hydrocodone 20-50mg intermittently for 6 years, hx of tramadol and cocaine abuse, and slept for 3 hrs. Last COWS 3/CIWA 3. PRN: vistaril, trazodone, Robaxin inability to sleep, and generalized body aches, noted effective. Client is in bed, awake, appears slightly anxious, he is on SI/HI precautions sitter at bedside, he stated that he is on 1/10 thoughts of SI/HI, but that he feels much better with the medications the doctor has prescribed will continue to monitor. he was educated regarding plan of care for the day and medication with regimen, safety measures in place. call light with in reach, will continue to monitor.
[2017-01-12 08:00] VITALS: BP 120/75
[2017-01-12] MEDS: DICYCLOMINE HCL 20 MG TABLET PO SCH ×3 (08:10→21:05)
[2017-01-12] MEDS: ESCITALOPRAM OXALATE 10 MG TABLET PO SCH (08:10)
[2017-01-12] MEDS: GABAPENTIN 300 MG CAPSULE PO SCH ×3 (08:10→21:05)
[2017-01-12] MEDS: CLONIDINE HCL 0.1 MG TABLET PO SCH ×3 (08:10→21:04)
[2017-01-12] MEDS: THIAMINE HCL 100 MG TABLET PO SCH (08:11)
[2017-01-12] MEDS: MULTIVITAMINS,THERAPEUTIC TABLET PO SCH (08:11)
[2017-01-12] MEDS: FOLIC ACID 1 MG TABLET PO SCH (08:11)
[2017-01-12] MEDS: BACLOFEN 20 MG TABLET PO SCH ×3 (08:11→21:05)
[2017-01-12] MEDS: BUPRENORPHINE HCL 2 MG TAB.SUBL SL SCH ×2 (08:11→21:05)
[2017-01-12] MEDS ORDERED: BUPRENORPHINE HCL 2 MG TAB.SUBL SL SCH (09:00)
[2017-01-12] MEDS ORDERED: ONDANSETRON 4 MG/2 ML VIAL IM PRN (11:15)
[2017-01-12 12:00] VITALS: BP 126/76
[2017-01-12 16:01] VITALS: BP 128/77
--- NOTE | 2017-01-12 19:30 | NUR ---
END OF SHIFT Client is a 26 year old male admitted on 01/03/2017 with admitting Dx: ETOH/opiate withdrawal. Patient with substance use history of: vodka 473-1419ml 6 months daily with history of drinking etoh for 11 years, Seroquel 500-700mg smoked daily for 2 months, with hx of smoking Seroquel for 6 months, hydrocodone 20-50mg intermittently for 6 years, hx of tramadol and cocaine abuse. Last COWS 2/CIWA 2. Client is in group therapy, sitter by side for SI/HI precautions. Adequate intake and output. safety measures in place. call light with in reach, Endorsed to incoming nurse.
--- NOTE | 2017-01-12 19:30 | NUR ---
START OF SHIFT NOTE Patient endorsed by day shift nurse in stable condition. Report received. Patient is a 26 years old male admitted to [facility] on 01/03/2017 for Alcohol, Opioid, and Seroquel Dependence, placed on 5 day Ativan taper on 01/04/2017 and 4 day Subutex taper on 01/09/2017. NKA, NKFA, NKDA, Regular Diet, Full Code, Fall and Seizures Precautions. No History of Seizures. PMH: Major Depression, Anxiety, Insomnia, Suicide attempts x2. Last Suicide attempt's 3 weeks ago. Patient does not have an active plan. Substance Use History: Alcohol(Vodka) PO: " 473ml - 1419 ml daily during 6 months current, and 11 years total. Seroquel ('smoke") :" 500mg - 700 mg last 2months current, and 6 months total". Hydrocodone PO "20-50 mg , intermittently since 2010". Patient reported history of Tramadol and Cocaine abuse. Upon assessment patient is alert and oriented x4, cooperative. COWS 4. CIWA 4. Patient presenting with mild anxiety, stomach cramps, mild bones and muscles aching, tremors that can felt. VS WNL. Patient remains compliant with medications, treatment plan, and diet regime. Patient attended activity groups. 1:1 sitter at bedside with patient for safety, unsteady gait. Safety measures in the place by hospital policy: Call light within reach; Bed in the lowest position and locked; Bed rails up x2. Will continue to monitor.
[2017-01-12 20:00] VITALS: BP 131/73
--- NOTE | 2017-01-12 22:00 | NUR ---
SUBUTEX REASSESSMENT Patient reassessment done. Patient is alert and oriented x4, cooperative. COWS decreased from 4 to 3. Patient presenting with mild anxiety, mild bone and joint aches, barely sweating. Subutex was effective. Safety measures on the place: Call light within reach; Bed in the lowest position and locked; Side rails up x2. Will continue to closely monitor.
[2017-01-12] MEDS: TRAZODONE 100 MG TABLET PO PRN (22:35)
--- NOTE | 2017-01-12 22:35 | NUR ---
PRN TRAZODONE PO ADMINISTRATION Patient c/o insomnia and asked sleeping aid. Patient's assessed. PRN Trazodone discussed with patient. Patient's educated for actions, adverse reactions, and side effects of the Trazodone. Patient returned his knowledge back by verbalizing understanding. PRN Trazodone PO administrated as ordered with full glass of water. Patient tolerated well. Will reassessed in 1 hour. Safety measures on the place:Call light within reach; Bed in the lowest position and locked; Side rails up x2. Will continue to monitor.
--- NOTE | 2017-01-13 | NUR ---
VS, POONAM, COWS REFUSED Patient refused to be woken up for 00:00 VS. POONAM/COWS deferred d/t patient sleeping to assess while patient is awake. 1:1 sitter at bedside. Safety measures on place by hospital policy: Call light within reach; Bed in lowest position and locked; side rails up x2. Will continue to monitor.
[2017-01-13] MEDS: METHOCARBAMOL 750 MG TABLET PO PRN (03:28)
[2017-01-13] MEDS: HYDROXYZINE PAMOATE 25 MG CAPSULE PO PRN (03:28)
[2017-01-13 04:00] VITALS: BP 119/62
--- NOTE | 2017-01-13 04:28 | NUR ---
REASSESSMENT Patient is sleeping in his bed. Breathing is even and unlabored. RR:16. PRN Vistaril PO, PRN Robaxin PO were effective. Safety measures in the place by hospital policy: Call light within reach, bed in the lowest position and locked, bed rails up x2. Will continue to monitor.
[2017-01-13] MEDS: ACETAMINOPHEN 325 MG TABLET PO PRN (05:19)
--- NOTE | 2017-01-13 05:19 | NUR ---
PRN TYLENOL PO ADMINISTRATION Patient c/o wisdom toothache. Pain level 7/10. Patient 's assessed. PRN Tylenol discussed with patient. Patient 's educated for actions, adverse reactions, and side effects of the Tylenol. Patient returned back his knowledge by verbalizing understanding. Safety measures on the place: Call light within reach; Bed in the lowest position and locked; Side rails up x2. Will continue to monitor.
--- NOTE | 2017-01-13 06:19 | NUR ---
REASSESSMENT Patient is sleeping. Breathing even and unlabored.PRN Tylenol PO was effective.Safety measures in the place by hospital policy: Call light within reach; Bed in the lowest position and locked; Bed rails up x2. 1:1 sitter for unsteady gait. Patient endorsed to day shift nurse in stable condition. Report given.
--- NOTE | 2017-01-13 07:14 | NUR ---
END OF SHIFT NOTE Patient is a 26 years old male admitted to [facility] on 01/03/2017 for Alcohol, Opioid, and Seroquel Dependence, placed on 5 day Ativan taper on 01/04/2017 and 4 day Subutex taper on 01/09/2017. NKA, NKFA, NKDA, Regular Diet, Full Code, Fall and Seizures Precautions. No History of Seizures. PMH: Major Depression, Anxiety, Insomnia, Suicide attempts x2. Last Suicide attempt's 3 weeks ago. Patient does not have an active plan. Substance Use History: Alcohol(Vodka) PO: " 473ml - 1419 ml daily during 6 months current, and 11 years total. Seroquel ('smoke") :" 500mg - 700 mg last 2months current, and 6 months total". Hydrocodone PO "20-50 mg , intermittently since 2010". Patient reported history of Tramadol and Cocaine abuse. COWS 5. CIWA 3. Patient presenting with mild anxiety, mild bones and muscles aching, tremors that can felt. VS WNL. PRN Vistaril PO, PRN Robaxin PO, PRN Trazodone PO, PRN Tylenol PO were effective. Patient remained compliant with medication, treatment plan, and diet regime. Patient attended activity groups. Patient slept 4 hours; Intake 1920 ml; output x3. Safety measures in the place by hospital policy: Call light within reach; Bed in the lowest position and locked; Bed rails up x2. 1:1 sitter for unsteady gait. Patient endorsed to day shift nurse in stable condition. Report given. Addendum: 01/13/17 at 0725 by LIONEL LANG RN Protonix ordered for 0700 was not administrated, because patient sleeping. REKHA Pearce, day shift, received report.
--- NOTE | 2017-01-13 08:00 | NUR ---
START OF SHIFT: Received pt AOx4. Pt eating breakfast this AM and he slept intermittently about 6.5 hours last night and states he was restless because of his toothache to right side. PRN Tylenol given by sales outfitter early this morning for right tooth pain. Pt continues on 1:1 with sitter at beside, he states his gait is steady and he has mild body aches and anxiety. C/o wisdom tooth pain 03/23. Pt denies S/I and H/I. Ativan taper complete. Pt continues subutex taper. COWS 4 CIWA 3 this AM. Encouraged group attendance today. Will continue to monitor and provide safe and supportive environment.
[2017-01-13 08:05] VITALS: BP 116/58
[2017-01-13 08:19] VITALS: BP 116/68
[2017-01-13] MEDS: PANTOPRAZOLE SODIUM 40 MG TABLET.DR PO SCH (08:21)
[2017-01-13] MEDS: DICYCLOMINE HCL 20 MG TABLET PO SCH ×3 (08:22→21:34)
[2017-01-13] MEDS: BACLOFEN 20 MG TABLET PO SCH ×3 (08:22→21:34)
[2017-01-13] MEDS: CLONIDINE HCL 0.1 MG TABLET PO SCH ×3 (08:22→21:34)
[2017-01-13] MEDS: ESCITALOPRAM OXALATE 10 MG TABLET PO SCH (08:22)
[2017-01-13] MEDS: MULTIVITAMINS,THERAPEUTIC TABLET PO SCH (08:22)
[2017-01-13] MEDS: GABAPENTIN 300 MG CAPSULE PO SCH ×3 (08:22→21:34)
[2017-01-13] MEDS: THIAMINE HCL 100 MG TABLET PO SCH (08:22)
[2017-01-13] MEDS: IBUPROFEN 600 MG TABLET PO PRN ×3 (08:23→21:34)
[2017-01-13] MEDS: FOLIC ACID 1 MG TABLET PO SCH (08:23)
--- NOTE | 2017-01-13 08:30 | NUR ---
PRN MOTRIN GIVEN FOR WISDOM TOOTH PAIN 03/23. WILL MONITOR EFFECTIVENESS.
[2017-01-13] MEDS ORDERED: BUPRENORPHINE HCL 2 MG TAB.SUBL SL SCH (09:00)
--- NOTE | 2017-01-13 10:00 | NUR ---
1:1 DISCONTINUED PER MD. PT HAS STEADY GAIT AND DENIES S/I AND H/I WILL CONTINUE TO MONITOR
[2017-01-13 12:00] VITALS: BP 112/60
[2017-01-13] MEDS ORDERED: LIDOCAINE VISCUS 2% 15 ML UDC MM PRN (13:00)
[2017-01-13] MEDS ORDERED: Gabapentin PO (13:03)
[2017-01-13] MEDS ORDERED: OLAN5TAB6 PO (13:03)
[2017-01-13] MEDS ORDERED: Ibuprofen PO (13:03)
[2017-01-13] MEDS ORDERED: ESCI10TA PO (13:03)
[2017-01-13] MEDS ORDERED: CLON0.1T14 PO (13:03)
[2017-01-13] MEDS ORDERED: Trazodone Hcl PO (13:03)
[2017-01-13] MEDS ORDERED: METH-33 PO (13:03)
[2017-01-13] MEDS ORDERED: PANT40TA2 PO (13:03)
[2017-01-13] MEDS ORDERED: Baclofen PO (13:03)
[2017-01-13] MEDS ORDERED: DICY20TA28 PO (13:03)
[2017-01-13] MEDS ORDERED: HYDR-3895 PO (13:03)
--- NOTE | 2017-01-13 15:19 | NUR ---
PRN MOTRIN GIVEN FOR TOOTHACHE. WILL MONITOR FOR EFFECTIVENESS.
[2017-01-13 16:00] VITALS: BP 128/87
--- NOTE | 2017-01-13 16:00 | NUR ---
PRN MOTRIN EFFECTIVE IN CONTROLLING PAIN. PT STATES PAIN HAS MINIMIZED.
[2017-01-13 17:31] LABS: *AMPHETAMINE, URINE NEGATIVE (NEGATIVE); *BARBITURATE, URINE NEGATIVE (NEGATIVE); *CANNABINOID, URINE NEGATIVE (NEGATIVE); *COCCAINE, URINE NEGATIVE (NEGATIVE); *OPIATE, URINE NEGATIVE (NEGATIVE); *PHENCYCLIDINE SCREEN,URINE NEGATIVE (NEGATIVE)
--- NOTE | 2017-01-13 18:48 | NUR ---
END OF SHIFT PT COMPLETED TAPERS. PT GIVEN MOTRIN FOR TOOTH PAIN TODAY X2 WITH EFFECTIVENESS. PT REMAINS COMPLIANT WITH TX PLAN AND STATES HIS MEDICATIONS HELP DECREASE HIS ANXIOUSNESS. PT ATTENDED GROUP TODAY AND SOCIALIZED IN REC ROOM MOST OF THE DAY. DC PLANNED FOR TOMORROW. UDS COLLECTED.LAST COWS 3 CIWA 3. ALL NEEDS MET. WILL REPORT TO SWING RIDE OPERATOR NURSE.
[2017-01-13 20:00] VITALS: BP 115/67
--- NOTE | 2017-01-13 20:05 | NUR ---
START OF SHIFT Received report from day shift nurse. Pt attended a group meeting and returned to his room after. He is a 26 yo male admitted to [facility] on 01/03 for ETOH and opiate dependence with a h/o seroqyuel, tramadol, and cocaine use. He is A&O x4 and ambulatory. NKA, full code status, and on a regular diet. He has a PMH of major depression, anxiety, insomnia, and suicide attempts x2 (last 3 weeks ago). On admission he reported drinking vodka 473-1419 mL per day for 6 months, hydrocodone 20-50mg intermittently, smoking seroquel 500-700mg for 2 months. He completed an extended Ativan taper and 4 day subutex taper and is scheduled for discharge tomorrow. He reports sweating off and on throughout the day, mild anxiety, and wisdom tooth pain. Pt denies SI/HI. Fall and seizure precautions in place. Bed is down with call light in reach.
--- NOTE | 2017-01-13 21:35 | NUR ---
PRN Ibuprofen administration Pt reports wisdom tooth pain 04/22. PRN Motrin administered.
[2017-01-13] MEDS: TRAZODONE 100 MG TABLET PO PRN (22:28)
--- NOTE | 2017-01-13 22:30 | NUR ---
PRN Trazodone administration Pt reports inability to sleep. PRN Trazodone administered.
--- NOTE | 2017-01-13 22:35 | NUR ---
PRN Ibuprofen reassessment PRN Ibuprofen effective. Pt reports that wisdom tooth pain is reduced.
--- NOTE | 2017-01-14 | NUR ---
0000 Vitals, COWS, and CIWA deferred Pt refused to be woken for 0000 Vitals. Respirations even and unlabored. Bed is down with call light in reach.
--- NOTE | 2017-01-14 04:00 | NUR ---
0400 Vitals, COWS, and CIWA deferred Pt refused to be woken for 0400 Vitals. Respirations even and unlabored. Bed is down with call light in reach.
[2017-01-14] MEDS: IBUPROFEN 600 MG TABLET PO PRN (05:34)
--- NOTE | 2017-01-14 05:35 | NUR ---
PRN Motrin and Xylocaine Viscus Pt woke up and c/o wisdom tooth pain 04/22. PRN Motrin and Xylocaine Viscus administered.
--- NOTE | 2017-01-14 06:35 | NUR ---
PRN Motrin and Xylocaine reassessment PRN Motrin and Xylocaine effective. Pt reports that pain is relieved with Motrin and Xylocaine.
[2017-01-14] MEDS: PANTOPRAZOLE SODIUM 40 MG TABLET.DR PO SCH (07:00)
--- NOTE | 2017-01-14 07:25 | NUR ---
END OF SHIFT Report provided to day shift nurse. Pt is lying in bed resting. He is a 26 yo male admitted to [facility] on 01/03 for ETOH and opiate dependence with a h/o seroquel, tramadol, and cocaine use. He is A&O x4 and ambulatory. NKA, full code status, and on a regular diet. He has a PMH of major depression, anxiety, insomnia, and suicide attempts x2 (last 3 weeks ago). On admission he reported drinking vodka 473-1419 mL per day for 6 months, hydrocodone 20-50mg intermittently, smoking seroquel 500-700mg for 2 months. Pt completed an extended Ativan taper and 4 day subutex taper. Pt is scheduled for discharge today. Pt has right side wisdom tooth pain. PRN Ibuporofen x2, Trazodone, and Lidocaine Viscus administered. Last COWS 2 and CIWA 3. He drank 796mL and slept for 7 hours. Fall and seizure precautions in place. Bed is down with call light in reach.
[2017-01-14 08:00] VITALS: BP 104/65
[2017-01-14] MEDS: GABAPENTIN 300 MG CAPSULE PO SCH (08:11)
[2017-01-14] MEDS: BACLOFEN 20 MG TABLET PO SCH (08:11)
[2017-01-14] MEDS: ESCITALOPRAM OXALATE 10 MG TABLET PO SCH (08:11)
[2017-01-14] MEDS: DICYCLOMINE HCL 20 MG TABLET PO SCH (08:11)
[2017-01-14 08:12] VITALS: BP 104/65
[2017-01-14] MEDS: THIAMINE HCL 100 MG TABLET PO SCH (08:12)
[2017-01-14] MEDS: MULTIVITAMINS,THERAPEUTIC TABLET PO SCH (08:12)
[2017-01-14] MEDS: FOLIC ACID 1 MG TABLET PO SCH (08:12)
[2017-01-14] MEDS: CLONIDINE HCL 0.1 MG TABLET PO SCH (08:12)
--- NOTE | 2017-01-14 08:26 | NUR ---
START OF SHIFT PT COMPLETED TAPERS. PT DENIES S/I AND H/I WITH STEADY GAIT.PT GIVEN MOTRIN FOR TOOTH PAIN LAST SHIFT X2 WITH EFFECTIVENESS BY NIGHT NURSE WITH RELIEF PER PT. PT REMAINS COMPLIANT WITH TX PLAN AND STATES HIS MEDICATIONS HELP DECREASE HIS ANXIOUSNESS. PT GIVEN PRN TRAZODONE BY NIGHT NURSE AND SLEPT 7 HRS LAST NIGHT. PT GIVEN VISCOUS LIDOCAINE FOR TOOTH PAIN AND PT REPORTS IT RELIEVED HIS PAIN. DC PLAN IN PLACE FOR TODAY. UDS COLLECTED.DC PAPERS SIGNED BY PT AND IN CHART. LAST COWS 2 CIWA 3. ALL NEEDS MET. WILL CONTINUE TO MONITOR UNTIL PATIENT DC TODAY.
--- NOTE | 2017-01-14 09:35 | NUR ---
DISCHARGE PT PRESENTS WITH BRIGHTER AFFECT AND PLEASANT MOOD. PT STATES HE IS MOTIVATED TOWARD RECOVERY. HE DENIES S/I AND H/I. BELONGINGS RETURNS WITH RX. EDUCATED PT ON DC INSTRUCTIONS AND MEDICATIONS. PT EXPRESSED VERBAL UNDERSTANDING OF INFO GIVEN. EVALUATOR TRANSFER STUDENTS ESCORTED PT TO [facility] WHERE HE WAS ESCORTED BY [facility] AT 0925 TO MORNING SIDE RECOVERY. VS STABLE AT TIME OF DC.
== END 2017-01-14 09:25 | disposition home or self-care (01) | DRG 895 ==
LOC: SRC 21:38
PROVIDERS: ADMIT Internal Medicine; ATTEND Internal Medicine
PROC: HZ2ZZZZ Detoxification Services for Substance Abuse Treatment (ICD-10-PCS; principal; 2017-01-03)
PROC: HZ31ZZZ Individual Counseling for Substance Abuse Treatment, Behavioral (ICD-10-PCS; 2017-01-04)
PROC: HZ41ZZZ Group Counseling for Substance Abuse Treatment, Behavioral (ICD-10-PCS; 2017-01-07)
DX: F10.231 Alcohol dependence with withdrawal delirium (principal); F33.2 Major depressive disorder, recurrent severe without psychotic features; K70.10 Alcoholic hepatitis without ascites; F11.23 Opioid dependence with withdrawal; Y90.0 Blood alcohol level of less than 20 mg/100 ml; Z91.5 Personal history of self-harm; F41.9 Anxiety disorder, unspecified; G47.00 Insomnia, unspecified; E87.6 Hypokalemia; F12.90 Cannabis use, unspecified, uncomplicated; F17.210 Nicotine dependence, cigarettes, uncomplicated; D72.829 Elevated white blood cell count, unspecified; F14.90 Cocaine use, unspecified, uncomplicated
CPT/HCPCS: 36415; 70030-TC; 71010; 80307; 83690; 83735; 84443; 85025; 86580; 86592; 86705; 86803; 87340; 87806; 90686; 90732; 93005; A4663; C9113; G6040-TC; J2405; J2550; J3411; J3480; J3490; Q0162; Q0163